=== PATIENT | female | born 1950 | race Caucasian/White ===

== ENCOUNTER 2024-08-31 10:32 | Emergency (ER) | payer MEDICARE, SELFPAY ==
--- NOTE | ~2024-08-31 | XR_ITS ---
EXAMINATION: XR KNEE, LEFT CLINICAL INFORMATION: fall knee pain s/p ORIF COMPARISON: None available. TECHNIQUE: Four views of the left knee. FINDINGS: Metallic hardware through the patella. Osteopenia versus osteoporosis. Marginal osteophyte formation femoral condyles and tibial plateau. Joint space narrowing involving the medial and to a lesser extent lateral compartment. No acute cortical disruption or malalignment. Small suprapatellar bursa joint effusion. XR/XR knee LT 4V IMPRESSION: Status post open reduction internal fixation of the patella fracture. Tricompartmental osteoarthrosis. Osteopenia versus osteoporosis. Small to moderate volume suprapatellar bursa joint effusion. Electronically signed by: Omar Dee MD 08/31/2024 12:07 PM EDT
--- NOTE | ~2024-08-31 | CT_ITS ---
CLINICAL HISTORY: fall left knee pain CT of the left knee without IV contrast. COMPARISON: XR left knee dated 08/31/24 at 12:00 EDT FINDINGS: Small suprapatellar joint effusion. Distal left femur, and proximal tibia and fibula are intact. Anatomic alignment of internally fixated patella. No acute patellar injury. No evidence of hardware failure or loosening. Medial and lateral joint space narrowing. Tricompartment osteophytes. IMPRESSION: 1. Small left suprapatellar joint effusion. 2. Anatomic alignment of internally fixated patella without evidence of hardware complication. 3. Moderate tricompartment degenerative changes of the left knee. This document has been electronically signed by: Bradly Sheth MD on 08/31/2024 17:48:43
[2024-08-31 10:41] VITALS: BP 152/90; PULSE 85; O2SAT 97
[2024-08-31 10:50] VITALS: BP 146/80; PULSE 72; RESP 18; TEMP 37; O2SAT 96; BMI 41.4
--- NOTE | 2024-08-31 10:56 | ED.FALL ---
HPI - Fall General Chief Complaint: Fall Stated Complaint: FALL,LLE PAIN/SWELLING,-LOC,-HS,-THINNERS PER EMS Time Seen by Provider: 08/31/24 10:43 Source: patient and EMS Mode of arrival: EMS Limitations: no limitations History of Present Illness ED Provider: MALISSA SORENSON PA-C HPI Narrative: 73-year-old female presents to the ED today via EMS from home for evaluation of left knee pain s/p mechanical trip and fall this morning. Patient reports ambulating around her home when her shoe got caught on the carpet causing her to fall to her left side. Reports falling onto her left knee. Denies any preceding symptoms. Denies head strike or LOC. No anticoagulation. States she was not able to stand or ambulate following the fall, prompting her to call EMS for transport to ED. Admits to pain along the anterolateral aspect of left knee, worse with movement and weight-bearing. She did not trial any [id number] pain medication prior to arrival. Admits to associated nausea without vomiting. Denies numbness, tingling, weakness of the left lower extremity. Admits to history of ORIF to left knee approximately 3-4 years ago. Related Data Home Medications ?Medication ?Instructions ?Recorded ?Confirmed Calcium 600 + D(3) 600 mg PO BID 08/31/24 08/31/24 fluoxetine 40 mg capsule 40 mg PO DAILY 08/31/24 08/31/24 lorazepam 0.5 mg tablet 0.5 mg PO BEDTIME PRN anxiety 08/31/24 08/31/24 metoprolol tartrate 25 mg tablet 25 mg PO BID 08/31/24 08/31/24 omeprazole 20 mg capsule,delayed 20 mg PO DAILY@0630 08/31/24 08/31/24 release pravastatin 10 mg tablet 10 mg PO DAILY 08/31/24 08/31/24 ropinirole 1 mg tablet 1 mg PO DAILY 08/31/24 08/31/24 ropinirole 1 mg tablet 3 mg PO DAILY@1200,2100 08/31/24 08/31/24 vitamins A,C,A-xdhm-djesvk 4,296 1 cap PO BID 08/31/24 08/31/24 mcg-226 mg-90 mg capsule (PreserVision AREDS) Allergies Allergy/AdvReac Type Severity Reaction Status Date / Time azithromycin Allergy Unknown Hives Verified 08/31/24 10:51 [Zithromax Z-Roderick] Review of Systems Review of Systems: Yes all other systems are reviewed and are negative [facility] Past Medical History Attestation statement: The following information was validated with the patient. Source: old records reviewed and nursing notes reviewed Social History Social History Smoked in Last 30 Days: No Use of substances other than those prescribed or required for medical reasons: No Any prior treatment program specific to substance use: No Advance Directives: No Advance Directives Information Provided: Yes Do you have a plan to hurt others: No Plan Physical Exam Vital Signs: Vital Signs: Last Vital Signs Temp 98.2 F 08/31/24 13:39 Pulse 81 08/31/24 14:08 Resp 18 08/31/24 13:39 BP 128/62 08/31/24 14:08 Pulse Ox 96 08/31/24 14:08 O2 Del Method Room Air 08/31/24 13:39 BMI result Body Mass Index 41.4 hypertensive, vitals otherwise wnl General: Well appearing, in no acute distress. Skin: Warm, dry, intact. No rashes or lesions. Head: Normocephalic, atraumatic. EENT: Hearing is intact b/l. Conjunctiva clear. PERRLA. EOM intact. Moist mucous membranes.? Neck: Supple without LAD Cardiac: Chest wall symmetric. RRR Lungs: Normal respiratory effort without accessory muscle use. CTA bilaterally. Ext: +healed vertical scar noted to anterior left knee. No surrounding erythema. No obvious deformity or noted swelling. Able to extend left lower extremity off of the bed with discomfort. Limited ROM to flexion secondary to pain. Tender to palpation along anterolateral aspect of left knee primarily along the patella. No palpable deformity or crepitus. Sensation intact to light touch distally. 2+ DP pulse intact. No calf tenderness. Ambulation not assessed. Neuro: AOx3. Normal speech. Course Course Course Narrative: 2944 -- x-ray left knee shows status post open reduction internal fixation of patellar fracture. No acute fracture or dislocation. There is tricompartmental osteoarthritis, osteopenia versus osteoporosis and small to moderate volume suprapatellar bursa joint effusion. > discussed workup results with patient. Concern for ligament versus tendon injury. Patient placed in knee immobilizer with advice to bear weight as tolerated. I discussed the option of crutches versus walker with patient. Declining crutch training. We trialed ambulation with walker which patient tolerated well however is requesting PT/case management consultation at this time to assess for further services. I I feel this is reasonable. Consultations placed. Patient tells me that she is full code. Code status updated. Offered tramadol as patient takes this at home for arthritis as needed. She states tramadol is not work for her and would like to trial oxycodone. This has been ordered. > physician observation initiated at this time 1433 -- PT recommending short-term rehab. Patient agreeable. Case management will follow. 1555 -- CM requesting CT keft knee for placement > IMPRESSION: 1. Small left suprapatellar joint effusion. 2. Anatomic alignment of internally fixated patella without evidence of hardware complication. 3. Moderate tricompartment degenerative changes of the left knee. Medications Administered Generic Name Dose Route Start Last Admin Trade Name Freq PRN Reason Stop Dose Admin Fluoxetine HCl 40 mg 08/31/24 15:45 08/31/24 15:47 Fluoxetine Hcl 20 Mg Capsule PO Not Given DAILY ADRIANNE Pravastatin Sodium 10 mg 08/31/24 15:45 08/31/24 15:47 Pravastatin Sodium 10 Mg Tablet PO Not Given DAILY ADRIANNE Discontinued Medications Generic Name Dose Route Start Last Admin Trade Name Freq PRN Reason Stop Dose Admin Ketorolac Tromethamine 30 mg 08/31/24 11:10 08/31/24 11:21 Ketorolac Tromethamine 30 Mg/Ml Vial IM 08/31/24 11:11 30 mg ONCE ONE Administration Omeprazole 20 mg 08/31/24 15:45 08/31/24 15:47 Omeprazole 20 Mg Capsule.Dr PO Not Given DAILY ADRIANNE Ondansetron HCl 4 mg 08/31/24 11:10 08/31/24 11:21 Ondansetron Odt 4 Mg Tab.Rapdis TRANSLINGU 08/31/24 11:11 4 mg ONCE ONE Administration Oxycodone HCl 5 mg 08/31/24 13:47 08/31/24 14:11 Oxycodone Hcl Immed Release 5 Mg Tablet PO 08/31/24 13:48 5 mg ONCE ONE Administration Ropinirole HCl 3 mg 08/31/24 15:20 08/31/24 15:47 Ropinirole Hcl 1 Mg Tablet PO 08/31/24 15:21 3 mg ONCE ONE Administration Procedures Orthopedic Splinting/Casting Injury #1: Side: left Lower Extremity Injury Location: knee Lower Extremity Immobilizer: knee immobilizer Medical Decision Making Medical Decision Making MDM Narrative: 73-year-old female presents to the ED today via EMS from home for evaluation of left knee pain s/p mechanical trip and fall this morning. Hypertensive, vitals otherwise WNL. She is well-appearing and in no acute distress, lying comfortably on the exam bed. on exam of RLE, healed vertical scar noted to anterior left knee. No surrounding erythema. No obvious deformity or noted swelling. Able to extend left lower extremity off of the bed with discomfort. Limited ROM to flexion secondary to pain. Tender to palpation along anterolateral aspect of left knee primarily along the patella. No palpable deformity or crepitus. Sensation intact to light touch distally. 2+ DP pulse intact. No calf tenderness. Ambulation not assessed. Differential diagnosis includes MSK sprain/strain, fracture, contusion, dislocation. Presentation not consistent with gout, pseudogout, Lyme arthritis, septic joint. Unlikely neurovascular compromise, threat to limb, compartment syndrome, DVT. Plan for x-rays, pain control, re-evaluation. Differential Diagnosis Differential Diagnoses: The differential diagnosis associated with the presentation includes as above. Admission/Observation Consideration of admission/observation: Escalation of care including admission/observation considered Lab Data [facility] Lab Attestation statement: I reviewed the patient's lab results. as above. Labs: Lab Results 08/31/24 Range/Units 14:41 Influenza Type A (PCR) NEGATIVE (Negative) Influenza Type B (PCR) NEGATIVE (Negative) RSV RNA Qual (PCR) NEGATIVE (Negative) SARS-CoV-2 RNA (RT-PCR) NEGATIVE (Negative) Independent Interpretation I performed an independent interpretation of an: Plain X-Ray and CT Scan Interpretation: xr left knee without acute fracture ct left knee without fracture Radiology Impression Discussion of test interpretation with radiology: I have reviewed the radiologist's reading. Radiologist Impression: XR knee LT 4V IMPRESSION: Status post open reduction internal fixation of the patella fracture. Tricompartmental osteoarthrosis. Osteopenia versus osteoporosis. Small to moderate volume suprapatellar bursa joint effusion. Electronically signed by: Omar Dee MD 08/31/2024 12:07 PM EDT Procedure(s): CT knee LT wo IV con Accession Number(s): [id number] cc: Malissa Sorenson~ Report Number: [id number]: Total DLP = 180.00 mGy-cm CLINICAL HISTORY: fall left knee pain CT of the left knee without IV contrast. COMPARISON: XR left knee dated 08/31/24 at 12:00 EDT FINDINGS: Small suprapatellar joint effusion. Distal left femur, and proximal tibia and fibula are intact. Anatomic alignment of internally fixated patella. No acute patellar injury. No evidence of hardware failure or loosening. Medial and lateral joint space narrowing. Tricompartment osteophytes. IMPRESSION: 1. Small left suprapatellar joint effusion. 2. Anatomic alignment of internally fixated patella without evidence of hardware complication. 3. Moderate tricompartment degenerative changes of the left knee. This document has been electronically signed by: Bradly Sheth MD on 08/31/2024 17:48:43 Independent Historian Clinical information obtained from an independent historian. History obtained from or confirmed by: EMS and Other (Son) Prescription Management I considered prescription management with: Pain Medication Social Determinants Patient?s care significantly limited by Social Determinants of Health including: Other Social Determinant of Health Critical Care Time Critical Care Time Critical Care Time: No Discharge Plan Discharge Clinical Impression: Left knee sprain Instructions: Knee Sprain (ED) Additional Instructions: You were evaluated in the ED today for leg knee pain following a fall. The x-ray of your left knee no leg shows joint effusion and osteoarthritis. There is no acute fracture. XR knee LT 4V IMPRESSION: Status post open reduction internal fixation of the patella fracture. Tricompartmental osteoarthrosis. Osteopenia versus osteoporosis. Small to moderate volume suprapatellar bursa joint effusion. Concern for ligament/tendon injury. You were placed in a knee immobilizer. You are declining crutches at this time. I have provided you with a prescription for a walker. You may present to any medical supply store every to obtain this. I recommend wearing the knee immobilizer and using the walker until you are able to follow up with orthopedics outpatient. You may bear weight as tolerated. You have been provided with a referral. Call them to establish care, they will not call you. I am sending tramadol to your pharmacy for you to take as needed for breakthrough pain. Use this medication with caution as this is a controlled substance and has addictive properties. Return with new or worsening symptoms. In the case of an emergency call 911. Prescriptions: No Action fluoxetine 40 mg capsule 40 mg PO DAILY ropinirole 1 mg tablet 1 mg PO DAILY pravastatin 10 mg tablet 10 mg PO DAILY omeprazole 20 mg capsule,delayed release(DR/EC) 20 mg PO DAILY@0630 metoprolol tartrate 25 mg tablet 25 mg PO BID Calcium 600 + D(3) tablet 600 mg PO BID Rx Instructions: 1 tab bid ropinirole 1 mg tablet 3 mg PO DAILY@1200,2100 lorazepam 0.5 mg tablet 0.5 mg PO BEDTIME PRN (Reason: anxiety) PreserVision AREDS 4,296 mcg-226 mg-90 mg Capsule 1 cap PO BID Referrals: [facility] [place] [facility] [Provider Group] - 3 days (XR knee LT 4V IMPRESSION: Status post open reduction internal fixation of the patella fracture. Tricompartmental osteoarthrosis. Osteopenia versus osteoporosis. Small to moderate volume suprapatellar bursa joint effusion.) Print Language: Spanish
[2024-08-31] MEDS: Ketorolac Tromethamine 30 MG/ML VIAL IM (11:21)
[2024-08-31] MEDS: Ondansetron ODT 4 MG TAB.RAPDIS TRANSLINGU (11:21)
--- OUTSIDE RECORDS SUMMARY | 2024-08-31 12:50 | XMS_ITS | Clinical Summary ---
Author Organization [facility] Address [address] [place] [address] Care Team Providers Care Redevelopment Specialist Name Role Phone Arlyn Llanes PA-C Primary Care Provi bhavani Kalina Martins MD Unavailable [phone] Breanne Painting MD Unavailable [phone] Jim Jordan Unavailable Allergies Active Allergy Reactions Criticality Noted Date Comments Azithromycin Unknown/Patient and Family Unable to Define Medium 05/25/2023 Sumatriptan Unknown/Patient and Family Unable to Define High 05/25/2023 Shrimp Hives Medium 02/19/2024 Zolmitriptan Unknown/Patient and Family Unable to Define Medium 05/25/2023 Medications rOPINIRole (REQUIP) 1 MG tablet Take 1 tablet (1 mg total) by mouth 2 (two) times a day. 1 tablet po in am and 2 tablet po noon and 3 tabs po at bedtime Active traMADol (ULTRAM) 50 MG tablet Take 1 tablet (50 mg total) by mouth as needed for severe pain. Active Vitamin D3 (CHOLECALCIFEROL) 50 MCG (2000 UT) tablet Take 1 tablet (2,000 Units total) by mouth daily. Active calcium carbonate-vitamin D (CALTRATE+D) 600 mg-10 mcg tablet Take 1 tablet by mouth 2 times a day. Active FLUoxetine (PROzac) 40 MG capsuleIndications :Gastroesophageal reflux disease, unspecified whether esophagitis present,Recurrent major depressive disorder, in partial remission,Anxiety Take 1 capsule (40 mg total) by mouth daily. 90 capsule 3 4 Active OMEprazole (PriLOSEC) 20 MG capsuleIndications :Gastroesophageal reflux disease, unspecified whether esophagitis present,Recurrent major depressive disorder, in partial remission Take 1 capsule (20 mg total) by mouth every morning before breakfast. 90 capsule 3 4 Active pravastatin (PRAVACHOL) 10 MG tabletIndications: Other hyperlipidemia Take 1 tablet (10 mg total) by mouth daily. 90 tablet 3 4 Active LORazepam (ATIVAN) 0.5 MG tabletIndications: Anxiety Take 1 tablet (0.5 mg total) by mouth nightly as needed for anxiety. For anxiety 90 tablet 3 5 Active loteprednol (LOTEMAX) 0.5 % ophthalmic suspension Administer 2 drops to both eyes 2 times a day. 5 Active metoPROLOL TARTRATE (LOPRESSOR) 25 MG tablet Take 1 tablet (25 mg total) by mouth 2 times a day. 5 026 Active empagliflozin (JARDIANCE) 10 MG tabletIndications: Prediabetes Take 1 tablet (10 mg total) by mouth every morning. 90 tablet 3 5 026 Active Active Problems Problem Noted Date Diagnosed Date PTTD (posterior tibial tendon dysfunction) 11/02 Hypocalcemia 10/07/2023 Overview (12/12/2023): S/p parathyroidectomy 02/2022, removal of bilateral superior glands - left superior 395 mg, right superior 156 mg & right inferior 97 mg, bx of left inferior - all hypercellular; PTH 62 to 14. Last Assessment & Plan: Her calcium levels have been low-normal to mildly low for the most part, no symptoms of acute hypocalcemia, phosphorus has been high normal/mildly high. Appears to have limited parathyroid reserve/mild hypoparathyroidism s/p parathyroidectomy x 3 w/ biopsy of the 4th. Will continue to monitor, if worsens will add 1, 25 D. Continue current calcium & 25D. Discussed sxs/signs of low calcium, if unable to take po d/t n/v & develops any symptoms, needs to go to ER. Pulmonary nodule 05/25/2023 Spinal stenosis of lumbar re gion without neurogenic claudication 05/25/2023 Macular degeneration 05/25/2023 IFG (impaired fasting glucose) 05/25/2023 Restless leg 05/16/2023 Osteoarthritis of multiple joints 05/16/2023 Morbid obesity 05/16/2023 Major depressive disorder in partial remission 0 05/16/2023 Anxiety 05/05/2023 05/05/2023 Fibromyalgia 05/05/2023 05/05/2023 Overview (05/05/2023): Last Assessment & Plan: Diffuse muscle pain stable Cntinue with daily physical activity. Other hyperlipidemia 05/05/2023 05/05/2023 Multinodular goiter 05/05/2023 05/05/2023 Overview (05/05/2023): S/p FNA right lobe nodule 12/2021, benign; s/p removal of exophytic left lobe nodule @ time of parathyroidectomy - nodular follicular hyperplasia Nephrolithiasis 05/05/2023 05/05/2023 History of primary hyperparathyroidism 3 05/05/2023 Overview (05/05/2023): S/p parathyroidectomy 02/2022, removal of bilateral superior glands - left superior 395 mg, right superior 156 mg & right inferior 97 mg, bx of left inferior - all hypercellular; PTH 62 to 14. Last Assessment & Plan: Appears euparathyroid on current labs. She has apparently had some low calcium levels since parathyroidectomy. Advised to split calcium into bid dosing (& if calcium carbonate, take with food). Will call for records from [facility] along w/ more recent labs. Hypertension 12/07/2021 05/05/2023 Migraine without aura 12/07/2021 05/05/2023 Osteoporosis 12/06/2021 05/25/2023 Gastroesophageal reflux disease without esophagi tis 05/09/2021 05/05/2023 Overview (05/05/2023): Last Assessment & Plan: Continue on omeprazole 20 mg PO daily. Last Assessment & Plan: Continue on omeprazole 20 mg PO daily. Resolved Problems Problem Noted Date Diagnosed Date Resolved Date History of positive PPD 05/25/202308/27 Overview (05/25/2023): Treated 25yr ago Trigger middle finger of right hand 05/25/202305/2509/17/2023 Overview (05/25/2023): Last Assessment & Plan: Recurrent triggering of the right middle and ring fingers, likely from overuse. She holds her cane in the right hand and leans heavily on it. Injected the middle trigger finger with triamcinolone. Benign lipomatous neoplasm o f skin and subcutaneous tissue of right leg 05/05/2023 05/05/2023 024 Status post total hip replacement, left 07/09/2021 0 05/25/2023 09/17/2023 Encounters Date Type Department Care Team Description 07/22/2024 Orders Only [facility] [address] [phone] Silvia Villeda PA-C Prediabetes (Primary Dx) 07/21/2024 1:00 PM EDT Office Visit [facility] [address] [place] [phone] Silvia Villeda PA-C Obesity, Class II, BMI 35-39.9 (Primary Dx); Prediabetes 07/21/2024 Telephone [facility] [address] [place] [phone] Silvia Villeda PA-C Appointment 07/21/2024 Travel 07/20/2024 Orders Only [address] [place] [address] ProviderHubert MD 06/22/2024 Orders Only [address] [place] [address] ProviderHubert MD 06/18/2024 Orders Only [address] [phone] Arlyn Llanes PA-C Acute vaginitis (Primary Dx) 06/18/[address] [phone] Arlyn Llanes PA-C 06/16/2024 1:00 PM EST Office Visit [address] [phone] Arlyn Llanes PA-C Influenza A (Primary Dx); Acute cough; Primary hypertension; Palpitations; Lower extremity edema 06/16/[address] [phone] Arlyn Llanes PA-C 06/16/2024 Travel 06/14/2024 Orders Only [address] [phone] Provider, Zohaib External Data 06/10/[address] [phone] Arlyn Llanes PA-C Other 06/09/[address] [phone] Arlyn Llanes PA-C 06/07/2024 Orders Only [facility] [address] [place] [address] Cardiology, Scan from Last 3 Months Immunizations Immunization Administration Dates Next Due Covid-19 MRNA Vaccine - Pfiz er 12+ (Purple Cap) 01/30/2021,06/26/2020,06/05/2020 H1N1 Inj Preservative Free 02/14/2009 H1N1 Nasal 02/14/2009 Hepatitis B 12/12/2011,07/12/2011,06/12/2011 Influenza High-Dose Quadrivalent,(FLUZONE HIGH-DOSE), Perservative Free IM 0.7 mL 65 years and older 01/22/2023,01/21/2022,01/22/2021,01/18,01/01/2019,01/23/2018,01/28/2017 Influenza High-Dose Trivalen t,(FLUZONE HIGH-DOSE), Perservative Free IM 0.5 mL 65 years and older 01/01/2019,01/23/2018,01/28/2017 Influenza Virus Trivalent Sp lit Vaccine (MDV) IM 01/10/2015,01/28/2013,01/08/2011,02/02,02/02/2008 Influenza, Quadrivalent (FLU AD) Adjuvanted Preservative Free IM 65 years and older 01/22/2021 Influenza, Quadrivalent (FLU ARIX, AFLURIA, FLULAVAL, FLUZONE) Preservative Free IM 02/19/2016 Influenza, Quadrivalent (FLU CELVAX) MDCK, Preservative Free IM 01/01/2019,02/19/2016,01/10/2015,01/28,01/08/2011,02/02/2010,02/02/2008 Influenza, Trivalent (FLUAD) Adjuvanted Preservative Free IM 65 years and older 01/04/2024 Influenza, Unspecified 01/22/2021 Mumps 09/22/2009 Pneumococcal Conjugate 13-Valent 11/02/2015 Pneumococcal Polysaccharide 23-Valent 12/03/2017 ,01/09/2010,02/15/2002 RSV VACCINE,Uspecified 01/04/2024 TD Preservative Free 05/27/2018 Td, Unspecified 05/27/2018 Tdap 02/14/2021,02/05/2008 Zoster Vaccine Live/Attenuat ed (Zostavax) 02/26/2012 Zoster Vaccine Recombinant (Shingrix) 11/25/2022 ,08/29/2022,05/28/2022 Family History Medical History Relation Name Comments Leukemia Father Heart disease Mother Hyperlipidemia Mother Hypotension Mother Hypotension Sister Relation Name Status Comments Father Mother Sister Social History Tobacco Use Types Packs/Day Years Used Date Smoking Tobacco: Former Cigarettes 0.5 30 1 968 - 1998 Smokeless Tobacco: Never Tobacco Cessation:Counseling Given: Not Answered Alcohol Use Standard Drinks/Week Comments Never 0 (1 standard drink = 0.6 oz pur e alcohol) PHQ-2 Answer Date Recorded PHQ-2 Total Score 0 09/16/2023 [facility] - Occupational Stress Questionnaire Answer Date Recorded Do you feel stress - tense, restless, nervous, or anxious, or unable to sleep at night because your mind is troubled all the time - these days? Rather much 07/21/2024 Physical Activity Answer Date Recorded On average, how many days pe r week do you engage in moderate to strenuous exercise (like a brisk walk)? 7 days 07/21/2024 On average, how many minutes do you exercise per day at this level? 10 min 07/21/2024 Comments No Sex and Gender Information Value Date Recorded Sex Assigned at Choose not to disclose 2:52 PM EST Legal Sex Female 2:50 PM EST Gender Identity Choose not to disclose 2:52 PM EST Sexual Orientation Choose not to disclose 2022 2:52 PM EST Last Filed Vital Signs Vital Sign Reading Time Taken Comments Blood Pressure 133/65 07/21/2024 12:51 PM EDT Pulse 87 07/21/2024 12:51 PM EDT Temperature 36.5 ??C (97.7 ??F) 06/16/2024 1:04 PM ES T Respiratory Rate 17 06/16/2024 1:04 PM EST Oxygen Saturation 98% 06/16/2024 1:04 PM EST Inhaled Oxygen Concentration - - Weight 104 kg (229 lb 6.4 oz) 07/21/2024 12:51 P M EDT Height 160 cm (5' 3 ) 07/21/2024 12:51 PM EDT Body Mass Index 40.64 07/21/2024 12:51 PM EDT Plan of Treatment Upcoming Encounters Date Type Department Care Team (Late st Contact Info) Description 10/01/2024 11:00 AM EDT Office Visit [facility] [address] [place] [phone] Arlyn Llanes PA-C [address] [place] [address] Health Maintenance Due Date Last Done Comments Hepatitis C Virus Screening 1950 Physical 10/20/1969 Colonoscopy 10/20/1996 COVID-19 Vaccine (2023-2 5 season) 2023 01/30/2021, 06/26/2020, 06/05/2020 Annual Wellness Visit 09/17/2024 09/17/2023 Mammogram 02/10/2025 02/10/2023 (Prev iously Completed) DXA Bone Density (Females,Ag es 65 and older) 09/29/2025 09/30/2023 DTaP/Tdap/Td Vaccines (5 - T d or Tdap) 02/14/2031 02/14/2021, 05/27/2018, 05/27/2018, Additional history exists Hepatitis B Vaccines Completed 12/12/2011, 07/12/2011, 06/12/2011 Pneumococcal Vaccines 50+ Completed 2017, 11/02/2015, 01/09/2010, Additional history exists Zoster (Shingles) Vaccine Completed 2022, 08/29/2022, 05/28/2022, Additional history exists Influenza Vaccine Completed 01/04/2024, , 01/21/2022, Additional history exists RSV Vaccine 60 years and old er and Patients Discontinued 01/04/2024 Chronic Controlled Substance User PDMP Review Discontinued 05/05/2024, 11/03/2023, 09/09/2023, Additional history exists Procedures Procedure Name Priority Date/Time Associated Diagnosis Comments HEMOGLOBIN A1C WITH ESTIMATED AVERAGE GLUCOSE Routine 07/21/2024 1:47 PM EDT Obesity, Class II, BMI 35-39.9 Prediabetes ECG 12-LEAD Routine 07/20/2024 2:31 PM EDT LAB RESULT Routine 06/22/2024 3:35 PM EST CARDIOLOGY ANGIOGRAM Routine 06/04/2024 1:43 PM EST BD BONE DENSITY STUDY - AXIAL Routine 09/30/2023 10:14 AM EDT from Last 3 Months or Most Recently Relevant to Health Maintenance Results * (ABNORMAL) Hemoglobin A1C with Estimated Average Glucose (07/21/2024 1:47 PM EDT) Hemoglobin A1C 6.0(H) <5.7 % of total Hgb [employer] Comment: For someone without known diabetes, a hemoglobin A1c value between 5.7% and 6.4% is consistent with prediabetes and should be confirmed with a follow-up test. For someone with known diabetes, a value <7% indicates that their diabetes is well controlled. A1c targets should be individualized based on duration of diabetes, age, comorbid conditions, and other considerations. This assay result is consistent with an increased risk of diabetes. Currently, no consensus exists regarding use of hemoglobin A1c for diagnosis of diabetes for children. Estimated Average Glucose (mg/dL) 126 mg/dL [employer] Estimated Average Glucose (mmol/L) 7.0 mmol/L [employer] Blood Blood specimen / Unknown 07/21/2024 1:47 PM EDT 07/21/2024 1:47 PM EDT Narrative [facility] - 07/22/2024 4:42 AM EDT FASTING:NO FASTING: NO us Silvia Villeda PA-C LAB BLOOD ORDERABLES Final Result [email or web address] [address] [place] [phone] * ECG 12 lead (07/20/2024 2:31 PM EDT) us External Provider ECG ORDERABLES Final Resul t * LAB RESULT (06/22/2024 3:35 PM EST) us External Provider MD [facility] AMB PROCEDURES Final Res ult * CARDIOLOGY ANGIOGRAM (06/04/2024 1:43 PM EST) Anatomical Region Laterality Modality Other us Scan Cardiology HX AMB PROCEDURES Edited Result - Final * BD BONE DENSITY STUDY - AXIAL (09/30/2023 10:14 AM EDT) Anatomical Region Laterality Modality Other 09/30/2023 9:45 AM EDT 09/30/2023 9:45 AM EDT Impressions 10/01/2023 8:36 AM EDT 1. DIAGNOSIS: Severe osteoporosis based on the lowest T-score value of -3.1 in the femoral neck and history of fracture of wrist, humerus/shoulder, femur/hip applying World Health Organization criteria. ?? 2. 10-YEAR FRACTURE RISK PREDICTION, FRAX: According to the guidelines, FRAX calculation should only be performed on patients in the osteopenia bone density category. Therefore, FRAX was not performed on this patient. 3. Treatment Recommendations: NOF guidelines recommend consideration for treatment in postmenopausal women and men age 50 and older presenting with the following: -A hip or vertebral (clinical or morphometric) fracture. -T-score less than or equal to -2.5 at the femoral neck or spine after appropriate evaluation to exclude secondary causes. -Low bone mass at the hip or spine and a 10-year fracture probability by FRAX of greater than or equal to 3% for hip fracture or greater than or equal to 20% for major osteoporotic fracture based on the [place] adapted WHO algorithm. 4. Other Recommendations: All treatment decisions require clinical judgment and consideration of individual patient factors, including patient preferences, comorbidities, previous drug use, risk factors not captured in the FRAX model (e.g. frailty, falls, vitamin D deficiency, increased bone turnover, interval significant decline in bone density) and possible under or overestimation of fracture risk by FRAX. Additional medical evaluation for secondary cause of low bone mineral density may be appropriate. 5. Mild levoscoliosis. FUTURE SCAN RECOMMENDATION: People with diagnosed cases of osteoporosis or at high risk for fracture should have regular bone mineral density tests. For patients eligible for Medicare, routine testing is allowed once every 2 years. The testing frequency can be increased to one year for patients who have rapidly progressing disease, those who are receiving or discontinuing medical therapy to restore bone mass, or have additional risk factors. Thank you for referring your patient to us, Merry Carter MD [phone] (Electronically Signed - 10/01/2023 08:36) Copy: BREANNE PAINTING MD [facility] , ?? Narrative 10/01/2023 8:36 AM EDT EXAMINATION: BONE DENSITOMETRY CLINICAL INDICATION: Osteoporosis. COMPARISON: This is the patients baseline examination. TECHNIQUE: Using a [employer]zbig DXA system (software version: 14.10) manufactured by [employer], dual-energy x-ray absorptiometry was performed of the lumbar spine and right hip. The images are of good technical quality. Summary results are attached. FINDINGS: AP SPINE L1-L3 (excluding L4): The data of L1-L4 has been changed to exclude the L4 vertebral body, because at this level may cause overestimation of lumbar spine density. BMD 1.235 g/cm2, Z-score 2.1, T-score 0.4, normal. RIGHT FEMUR, NECK: BMD 0.609 g/cm2, Z-score -1.3, T-score -3.1, osteoporosis. RIGHT FEMUR, TOTAL: BMD 0.776 g/cm2, Z-score -0.3, T-score -1.8, osteopenia. IDENTIFIED RISK FACTORS: Menopause, height loss, history of fracture (adult), hysterectomy, low calcium intake, osteoporosis. HISTORY OF FRACTURE: Femur/hip, humerus/shoulder, wrist, other fracture. MEDICATIONS: Multivitamin, vitamin D, bisphosphonates, calcium. Procedure Note Merry Carter MD - 10/01/2023 EXAMINATION: BONE DENSITOMETRY CLINICAL INDICATION: Osteoporosis. COMPARISON: This is the patients baseline examination. TECHNIQUE: Using a [employer] DXA system (software version:14.10) manufactured by [employer], dual-energy x-ray absorptiometrywas performed of the lumbar spine and right hip. The images are of goodtechnical quality. Summary results are attached. FINDINGS: AP SPINE L1-L3 (excluding L4): The data of L1-L4 has been changed toexclude the L4 vertebral body, because at this level may cause overestimation of lumbar spine density. BMD 1.235 g/cm2, Z-score 2.1, T-score 0.4, normal. RIGHT FEMUR, NECK: BMD 0.609 g/cm2, Z-score -1.3, T-score -3.1, osteoporosis. RIGHT FEMUR, TOTAL: BMD 0.776 g/cm2, Z-score -0.3, T-score -1.8, osteopenia. IDENTIFIED RISK FACTORS: Menopause, height loss, history of fracture (adult), hysterectomy, lowcalcium intake, osteoporosis. HISTORY OF FRACTURE: Femur/hip, humerus/shoulder, wrist, other fracture. MEDICATIONS: Multivitamin, vitamin D, bisphosphonates, calcium. IMPRESSION: 1. DIAGNOSIS: Severe osteoporosis based on the lowest T-score value of-3.1 in the femoral neck and history of fracture of wrist, humerus/shoulder,femur/hip applying World Health Organization criteria. 2. 10-YEAR FRACTURE RISK PREDICTION, FRAX: According to the guidelines,FRAX calculation should only be performed on patients in the osteopenia bone density category. Therefore, FRAX was not performed on this patient. 3. Treatment Recommendations: NOF guidelines recommend consideration for treatment in postmenopausal women and men age 50 and older presenting withthe following: -A hip or vertebral (clinical or morphometric) fracture. -T-score less than or equal to -2.5 at the femoral neck or spine after appropriate evaluation to exclude secondary causes. -Low bone mass at the hip or spine and a 10-year fracture probability byFRAX of greater than or equal to 3% for hip fracture or greater than or equalto 20% for major osteoporotic fracture based on the [place] adapted WHOalgorithm. 4. Other Recommendations: All treatment decisions require clinicaljudgment and consideration of individual patient factors, including patient preferences, comorbidities, previous drug use, risk factors not capturedin the FRAX model (e.g. frailty, falls, vitamin D deficiency, increasedbone turnover, interval significant decline in bone density) and possible underor overestimation of fracture risk by FRAX. Additional medical evaluationfor secondary cause of low bone mineral density may be appropriate. 5. Mild levoscoliosis. FUTURE SCAN RECOMMENDATION: People with diagnosed cases of osteoporosis or at high risk for fracture should have regular bone mineral density tests. For patients eligiblefor Medicare, routine testing is allowed once every 2 years. The testingfrequency can be increased to one year for patients who have rapidly progressing disease, those who are receiving or discontinuing medical therapy torestore bone mass, or have additional risk factors. Thank you for referring your patient to us, Merry Carter MD [phone] (Electronically Signed - 10/01/2023 08:36) Copy: BREANNE PAINTING MD [facility] , Arlyn Llanes PA-C IMG LEGACY PROCEDUR ES Final Result from Last 3 Months or Most Recently Relevant to Health Maintenance Insurance MEDICARE PART A & [place] [id number] Care Teams Redevelopment Specialist Relationship Specialty Start Date End Date Arlyn Llanes PA-C PCP - General Adult Health - PA/APNP/DRAFTER/MIS DIRECTOR 03/17/23 Kalina Martins MD [address] [place] [phone] Endocrinology 09/17/23 Breanne Painting MD [address] [place] [phone] Rheumatology 09/17/23 Jim Jordan [address] [place] [phone] Physical Medicine and Rehabilitation 09/17/23 Karen Greenwood Physician Gastroenterology 08/25/23
--- OUTSIDE RECORDS SUMMARY | 2024-08-31 12:50 | XMS_ITS | Data Portability ---
Author Organization [place] [facility] Tor[facility] P[facility]rez [facility] [place] Address [address] [place] [address] Care Team Providers Care Blood Bank Business Manager Name Role Phone GINA QUINTANILLA Referring Provider Assessment Encounter Date Assessment Date Assessment LastModified by Organization Details LastModified Time 04/02/2024 04/02/2024 Zuri has right knee pain with a history of previous joint replacement. We reviewed her x-rays together on the computer with no signs of hardware failure loosening or periprosthetic fracture. An ESR and CRP will be obtained and patient will follow-up Dr. Park's team in the [place] office for further evaluation. She did have some calf pain which was also mentioned by her urgent care visit consistent with a possible DVT. She was not recommended for any additional studies. Suspicion is low, but should be ruled out. If positive she will contact her primary care provider or go to the ER. She can use Voltaren gel over the area in the meantime to see if it offers some relief. Patient was seen and evaluated by New Schmidt PA-C in indirect conjunction with Dr. Park. The provider agrees with the history, physical examination, recommended tests/diagnostic imaging, and treatment plan. [email or web address] Not available 04/02/2024 11:08:37 Plan of Treatment Reminders Order Date Submit Date Provider Last Modified By Organization Details Last Modified Time Details Appointments None recorded. Lab ESR (erythrocyt e sedimentati on rate), blood - Joint pain status post arthroplast y, evaluate for joint infection 2023 024 FLORI Not available 10:43:15 C-reactive protein, quantitativ e, serum or plasma - Joint pain status post arthroplast y, evaluate for joint infection 2023 FLORI Not available 10:43:15 Referral None recorded. Procedures None recorded. Surgeries None recorded. Imaging US, duplex, venous, lower extremity - For 2 weeks calf pain and swelling. Rule out DVT 2023 FLORI Not available 10:01:16 XR, knee, 4 or more view 2023 a[facility]oro [facility], [address], [place], [address], 11:13:24 Medication Orders None recorded. Patient TargetsNo targets recorded. Patient InstructionsNo instructions recorded. Reason for Referral None Reported. Results Created Date Observation Date Name Description Value Unit Range Abnormal Flag Note LastModifiedBy Organization Detail LastModifiedTime 04/05/20 24 04/05/2024 US, duple x, venou s, lower extre mity No observ ation record ed. [email or web address] [facility] [address] [place], [address], 04/05/2024 13:56:00 Result Notes None recorded. Problems Name Problem SNOMED Code Status Onset Date Resolution Date Notes Provider Name and Address Organization Details Recorded Time Pain of right calf 8710446732031813 Active 2023 NEW SCHMIDT PA-C [address], [place], [phone], [place] [facility] 10:34:36 Problem Notes None recorded. Procedures Surgical History Date Name Laterality Status Provider Name and Address Organization Details Recorded Time arthroplasty of knee completed Lela Fall [facility] 04/02/2024 10:14:05 total replacement of hip completed Lela Fall [facility] 04/02/2024 10:14:15 Imaging Results Imaging Date Name Status LastModified by Organiz ation Details LastModified Time 04/05/2024 US, duplex, venous, lower extremity completed [email or web address] [facility] [address] [facility], [place], [address], 04/05/2024 13:56:00 Procedure Notes None recorded. Medical Equipment None Reported. Allergies Allergen ID Allergen Name Allergen Category Reaction Reaction Severity Criticality Documentation Date Start Date Code Code System Note Provider Name and Address Organization Details Recorded Time azithromy franki medicatio n Not available Not available Not available 04/02/2024 27485 RxNorm Lela Ana Maríaowinsk i null, [place] [facility] 10:07:49 sumatript an medicatio n Not available Not available Not available 04/02/2024 81995 RxNorm Lela Ana Maríaowinsk i null, [place] [facility] 10:11:42 Vitals Date Recorded Body height Body mass index (BMI) Body weight Provider Name and Address Organization Details Last Updated DateTime 04/02/2024 162.56 cm 33.5 kg/m2 50330.[address] [place] [facility] 04/02/2024 10:12:09 Social History Question Answer Notes LastModified by Organizat ion Details LastModified Time Tobacco Smoking Status Former Smoker Lela Woodlarisa jackson, [place] [facility] 04/02/2024 10:12:22 What Is Your Level Of Alcohol Consumption? None Information not available 04/02/2024 Do You Use Any Illicit Or Recreational Drugs? No Information not available 04/02/2024 Do You Or Have You Ever Used Any Other Forms Of Tobacco Or Nicotine? No Information not available 04/02/2024 Sex: Unknown Functional Status None recorded. Mental Status None recorded. Family History Relationship Description Onset Age of this Age Resolved Age Notes LastModified by Organization Details LastModified Time Father Malignant neoplastic disease [email or web address] Not available 09/2023 10:12:47 Father Hypertensive disorder [email or web address] Not available 09/2023 10:13:09 Father Heart disease [email or web address] Not available 09/2023 10:13:54 Mother Malignant neoplastic disease [email or web address] Not available 09/2023 10:12:47 Mother Hypertensive disorder [email or web address] Not available 09/2023 10:13:09 Mother Hyperlipidem ia [email or web address] Not available 09/2023 10:13:23 Mother Heart disease [email or web address] Not available 09/2023 10:13:54 Sister Hypertensive disorder [email or web address] Not available 09/2023 10:13:09 Sister Hyperlipidem ia msolowinski Not available 09/2023 10:13:23 Medical History Condition Response Osteopenia Y Hypertension Y Gynecological HistoryNo gynecological history recorded. Obstetrics History GPAL:G 0 P 0 0 0 0 Past Encounters Encounter ID Performer Location Encounter Start Date Encounter Closed Date Diagnosis/Indication Diagnosis SNOMED-CT Code Diagnosis ICD10 Code Diagnosis Note [id number] NEW SCHMIDT PA-C [facility] [address] [place] [phone] 04/02/2024 09:56:12 04/02/2024 11:13:24 Pain of right knee joint 7571356115 18634 M25.561 Pain of right calf 19950 88234 865666 M79.661 History of right total knee replacement 9821815289 843551 Z96.651 Health Concerns Section Related Observation LastModified by Organization Detai ls LastModified Time None Recorded Concern Status LastModified by Organization Details LastModified Time None Recorded Advance Directives Directive None Recorded Payers Encounter Date Sequence Insurance Name Policy Number Policy Rodriguez Covered Member ID Rodriguez Member ID Guarantor Name 04/02/2024 1 [place] Zuri Sharma [id number] Zuri Sharma 04/02/2024 2 [place]PPLE[place]) [id number] Zuri Sharma [id number] Zuri Sharma Notes Date Note Type Note Provider Name and Address Organization Details Recorded Time 04/02/2024 text/html Patient is a 73-year-old female who presents today with right knee pain. Past medical history significant for previous knee replacement by Dr. Benton 10 years ago. She has done well since. Unfortunately 2 weeks ago she started to have pain in the lateral aspect of her right knee and some calf pain. She denied any injury or trauma to cause the onset of her symptoms. She was seen at an urgent care on Friday. X-rays were obtained which were not available for today's visit. She was told she should see an orthopedist. She was also told she might have a clot. She was not sent for any additional imaging or treatment. She presents today for evaluation. Pain increases with activity but is intermittent. Unfortunate symptoms are getting getting worse. Past medical history significant for right knee replacement, hypertension and osteoporosis. NEW SCHMIDT PA-C [address], [place], [address], [place] [facility] 04/02/2024 11:09:22 OBGyn Episode No OBEpisode recorded.
--- OUTSIDE RECORDS SUMMARY | 2024-08-31 12:50 | XMS_ITS | Encounter Summary ---
Author Organization [facility] Address [address] [place] [address] Care Team Providers Care Patch Sander Name Role Phone Arlyn Llanes PA-C Primary Care Provi bhavani Kalina Martins MD Unavailable [phone] Emanuel Mcclelland MD Unavailable [phone] Taye Andres MD Unavailable [phone] Jim Jordan Unavailable Encounter Details Date Type Department Care Team (Late st Contact Info) Description 08/05/2023 Scanned Document [address] [place] [phone] Primary Care, Scan Social History Tobacco Use Types Packs/Day Years Used Date Smoking Tobacco: Former Cigarettes 0.5 30 1 968 - 1998 Smokeless Tobacco: Never Alcohol Use Standard Drinks/Week Comments Never 0 (1 standard drink = 0.6 oz pur e alcohol) PHQ-2 Answer Date Recorded PHQ-2 Total Score 4 05/16/2023 [facility] of Occupat ional Health - Occupational Stress Questionnaire Answer Date Recorded Do you feel stress - tense, restless, nervous, or anxious, or unable to sleep at night because your mind is troubled all the time - these days? Very much 06/05/2023 Physical Activity Answer Date Recorded On average, how many days pe r week do you engage in moderate to strenuous exercise (like a brisk walk)? 0 06/05/2023 On average, how many minutes do you exercise per day at this level? 0 06/05/2023 Comments No Sex and Gender Information Value Date Recorded Sex Assigned at Choose not to disclose 2:52 PM EST Legal Sex Female 2:50 PM EST Gender Identity Choose not to disclose 2:52 PM EST Sexual Orientation Choose not to disclose 2022 2:52 PM EST documented as of this encounter Plan of Treatment Upcoming Encounters Date Type Department Care Team (Late st Contact Info) Description 10/01/2024 11:00 AM EDT Office Visit [address] [place] [address] Arlyn Llanes PA-C [address] [place] [address] documented as of this encounter Visit Diagnoses Not on filedocumented in this encounter Care Teams Patch Sander Relationship Specialty Start Date End Date Arlyn Llanes PA-C PCP - General Adult Health - PA/APNP/HUB BORER/NURSERY SUPERVISOR 03/17/23 Kalina Martins MD [address] [place] [phone] Endocrinology 09/17/23 Emanuel Mcclelland MD [address] [place] [address] Referring Provider Urology 09/17/23 09/17/23 Taye Andres MD [address] [place] [address] Rheumatology 09/17/23 Jim Jordan [address] [place] [address] Physical Medicine and Rehabilitation 09/17/23 Karen Greenwood Physician Gastroenterology 08/25/23 documented as of this encounter
--- OUTSIDE RECORDS SUMMARY | 2024-08-31 12:50 | XMS_ITS | Encounter Summary ---
Author Organization [facility] Address [address] [place] [address] Care Team Providers Care Legal Investigator Name Role Phone Arlyn Llanes PA-C Primary Care Provi bhavani Kalina Martins MD Unavailable [phone] Emanuel Mcclelland MD Unavailable [phone] Taye Andres MD Unavailable [phone] Jim Jordan Unavailable Encounter Details Date Type Department Care Team (Late st Contact Info) Description 07/23/[address] [facility] CARDIOLOGY SCAN Cardiology, Scan Social History Tobacco Use Types Packs/Day Years Used Date Smoking Tobacco: Former Cigarettes 0.5 30 1 968 - 1998 Smokeless Tobacco: Never Alcohol Use Standard Drinks/Week Comments Never 0 (1 standard drink = 0.6 oz pur e alcohol) PHQ-2 Answer Date Recorded PHQ-2 Total Score 4 05/16/2023 [facility] of Occupat ional Health - Occupational Stress [...] Description 10/01/2024 11:00 AM EDT Office Visit [facility] [address] [facility] [address] [place] [address] Arlyn Llanes PA-C [address] [place] [address] documented as of this encounter Visit Diagnoses Not on filedocumented in this encounter Care Teams Legal Investigator Relationship Specialty Start Date End Date Arlyn Llanes PA-C PCP - General Adult Health - PA/APNP/DIRECTOR OF OUTPATIENT SERVICES/OIL PIPE INSPECTOR HELPER 03/17/23 Kalina Martins MD [address] [place] [phone] Endocrinology 09/17/23 Emanuel Mcclelland MD [address] [place] [address] Referring Provider Urology 09/17/23 09/17/23 Taye Andres MD [address] [place] [address] Rheumatology 09/17/23 Jim Jordan [address] [place] [address] Physical Medicine and Rehabilitation 09/17/23 Karen Greenwood Physician Gastroenterology 08/25/23 documented as of this encounter
--- OUTSIDE RECORDS SUMMARY | 2024-08-31 12:50 | XMS_ITS | Encounter Summary ---
Author Organization [facility] Address [address] [place] [address] Care Team Providers Care Recreation Therapy Aide Name Role Phone Arlyn Llanes PA-C Primary Care Provi bhavani Kalina Martins MD Unavailable [phone] Emanuel Mcclelland MD Unavailable [phone] Taye Andres MD Unavailable [phone] Jim Jordan Unavailable Encounter Details Date Type Department Care Team (Late st Contact Info) Description 08/21/2023 Scanned Document [facility] NEUROLOGY SCAN Neurology, Scan Social History Tobacco Use Types Packs/Day Years Used Date Smoking Tobacco: Former Cigarettes 0.5 30 1 968 - 1998 Smokeless Tobacco: Never Alcohol Use Standard Drinks/Week Comments Never 0 (1 standard drink = 0.6 oz pur e alcohol) PHQ-2 Answer Date Recorded PHQ-2 Total Score 4 05/16/2023 [facility] of Occupat ional Health - Occupational Stress [...] Description 10/01/2024 11:00 AM EDT Office Visit [facility] 100 [facility] [address] [place] [address] Arlyn Llanes PA-C [address] [place] [address] documented as of this encounter Visit Diagnoses Not on filedocumented in this encounter Care Teams Recreation Therapy Aide Relationship Specialty Start Date End Date Arlyn Llanes PA-C PCP - General Adult Health - PA/APNP/TRAVEL MANAGER/PLASTIC SEWER 03/17/23 Kalina Martins MD [address] [place] [phone] Endocrinology 09/17/23 Emanuel Mcclelland MD [address] [place] [address] Referring Provider Urology 09/17/23 09/17/23 Taye Andres MD [address] [place] [address] Rheumatology 09/17/23 Jim Jordan [address] [place] [address] Physical Medicine and Rehabilitation 09/17/23 Karen Greenwood Physician Gastroenterology 08/25/23 documented as of this encounter
--- OUTSIDE RECORDS SUMMARY | 2024-08-31 12:50 | XMS_ITS | Clinical Summary ---
Author Organization [facility] Address [address] [place] [address] Care Team Providers Care Gamemaster Name Role Phone Yesi Curry MD Primary Care Provider [phone] Allergies Active Allergy Reactions Criticality Noted Date Comments Azithromycin 12/06/2021 Medications Medication Sig Dispensed Refills Start Date End Date Status Acetaminophen-Code ine 300-30 MG per tablet acetaminophen 300 mg-codeine 30 mg tablet 0 Active aspirin 81 MG EC tablet Take 81 mg by mouth. 0 07/11/2021 Acti ve Bromfenac Sodium (Prolensa) 0.07 % SOLN Prolensa 0.07 % eye drops 0 Active Calcium Carbonate-Vitamin D (calcium-vitamin D) 500-200 MG-UNIT TABS Oyster Shell Calcium-Vitamin D3 500 mg-5 mcg (200 unit) tablet 0 Active dilTIAZem (TIAZAC) 120 MG 24 hr capsule diltiazem CD 120 mg capsule,extended release 24 hr 0 Active FLUoxetine (PROzac) 40 MG capsule fluoxetine 40 mg capsule 0 10/11/2014 Active ferrous sulfate 325 (65 FE) MG tablet ferrous sulfate 325 mg (65 mg iron) tablet 0 Active enoxaparin (LOVENOX) 40 MG/0.4ML SOSY enoxaparin 40 mg/0.4 mL subcutaneous syringe 0 Active LORazepam (ATIVAN) 0.5 MG tablet lorazepam 0.5 mg tablet 0 Active methocarbamol (ROBAXIN) 500 MG tablet methocarbamol 500 mg tablet 0 Active neomycin-polymyxin -dexamethasone (MAXITROL) 0.1 % ophthalmic suspension owujmgsf-qofxbgqku-ktv ameth 3.5 mg/mL-10,000 unit/mL-0.1% eye drops 0 Activ e ofloxacin (OCUFLOX) 0.3 % ophthalmic solution ofloxacin 0.3 % eye drops 0 Active omeprazole (PriLOSEC) 20 MG capsule omeprazole 20 mg capsule,delayed release 0 Active ondansetron (ZOFRAN) 4 MG tablet ondansetron HCl 4 mg tablet 0 Active pantoprazole (PROTONIX) 40 MG tablet pantoprazole 40 mg tablet,delayed release 0 Activ e potassium chloride ER (K-DUR,KLOR-CON) tablet 20 mEq Klor-Con M20 mEq tablet,extended release 0 Active prednisoLONE acetate (PRED FORTE) 1 % ophthalmic suspension prednisolone acetate 1 % eye drops,suspension 0 Activ e tamsulosin (FLOMAX) 0.4 MG CAPS tamsulosin 0.4 mg capsule 0 Active ZOLMitriptan (ZOMIG) 2.5 MG tablet zolmitriptan 2.5 mg tablet 0 Active traMADol (ULTRAM) 50 MG tablet tramadol 50 mg tablet 0 09/21/2021 A ctive rOPINIRole (REQUIP) 1 MG tablet ropinirole 1 mg tablet 0 09/21/2021 Ac tive pravastatin (PRAVACHOL) tablet 10 mg pravastatin 10 mg tablet 0 10/27/2020 Active oxyCODONE-acetamin ophen (PERCOCET) 5-325 MG per tablet oxycodone-acetaminophe n 5 mg-325 mg tablet 0 Active Diclofenac Sodium 1 % GEL diclofenac 1 % topical gel 0 10/27/2020 Active clindamycin (CLEOCIN) 300 MG capsule clindamycin HCl 300 mg capsule 0 Active chlorthalidone (HYGROTON) 25 MG tablet chlorthalidone 25 mg tablet 0 Active cephalexin (KEFLEX) 500 MG capsule cephalexin 500 mg capsule 0 Active Active Problems Problem Noted Date Diagnosed Date Class 2 obesity 12/07/2021 Hyperlipidemia 12/07/2021 Hypertension 12/07/2021 Migraine headache 12/07/2021 Osteoporosis 12/06/2021 Status post total hip replacement, left 07/10/19 22 Depression 05/09/2021 Overview: Last Assessment & Plan: Continue on fluoxetine 40 mg capsule PO every morning. GERD (gastroesophageal reflux disease) Overview: Last Assessment & Plan: Continue on omeprazole 20 mg PO daily. RLS (restless legs syndrome) 05/09/2021 Overview: Last Assessment & Plan: Continue on ropinirole 1 mg oral tablet (takes 2 tabs in AM, 2-3 mid-day and 3 tabs in PM). Fall on same level from slip ping, tripping and stumbling with subsequent striking against other object, initial encounter 02/21/2020 Contusion of left chest wall 02/17/2020 Social History Tobacco Use Types Packs/Day Years Used Date Smoking Tobacco: Never Assessed Sex and Gender Information Value Date Recorded Sex Assigned at Female 12/07/2021 8:53 AM EDT Gender Identity Not on file Sexual Orientation Not on file Job Start Date Occupation Industry Not on file Not on file Not on file Last Filed Vital Signs Vital Sign Reading Time Taken Comments Blood Pressure 123/77 12/07/2021 2:12 PM EDT Pulse 91 12/07/2021 2:12 PM EDT Temperature 37 ??C (98.6 ??F) 12/07/2021 2:12 PM EDT Respiratory Rate - - Oxygen Saturation 99% 12/07/2021 2:12 PM EDT Inhaled Oxygen Concentration - - Weight 94.1 kg (207 lb 7.3 oz) 12/07/2021 2:12 P M EDT Height - - Body Mass Index - - Plan of Treatment Health Maintenance Due Date Last Done Comments Hepatitis C Screening 1950 COVID-19 Vaccine (#1) 04/21/1952 Depression Screening 1963 Preventative Health Evaluation 10/20/1969 DTap / Tdap / Td (1 - Tdap) 10/20/1970 Colon Cancer Screening (Colonoscopy) 10/20/1996 Breast Cancer Screening (Mammogram) 10/20/2001 Shingrix-Zoster Vaccine (1 of 2) 10/20/2001 Fall Risk Assessment 10/20/2016 Osteoporosis Screening (DEXA Scan) 10/20/2016 Pneumococcal Vaccine (1 of 1 - PCV) 10/20/2016 Influenza Vaccine (#1) 2023 RSV Adult > 60+ Yrs or Pregn ant (1 - 1-dose 75+ series) 10/20/2026 Hepatitis B Vaccines Aged Out No long er eligible based on patient's age to complete this topic RSV Ped < 20 months Aged Out No longe r eligible based on patient's age to complete this topic Care Teams Gamemaster Relationship Specialty Start Date End Date Yesi Curry MD PCP - General Internal Medicine 03/10/17
--- OUTSIDE RECORDS SUMMARY | 2024-08-31 12:50 | XMS_ITS | Encounter Summary ---
Author Organization [facility] Address [address] [place] [address] Care Team Providers Care Flotation Operator Name Role Phone Arlyn Llanes PA-C Primary Care Provi bhavani Kalina Martins MD Unavailable [phone] Taye Andres MD Unavailable [phone] Jim Jordan Unavailable Encounter Details Date Type Department Care Team (Late st Contact Info) Description 11/07/2023 Scanned Document [facility] [address] [place] [address] Arlyn Llanes PA-C [address] [place] [address] Social History Tobacco Use Types Packs/Day Years Used Date Smoking Tobacco: Former Cigarettes 0.5 30 1 968 - 1998 Smokeless Tobacco: Never Alcohol Use Standard Drinks/Week Comments Never 0 (1 standard drink = 0.6 oz pur e alcohol) PHQ-2 Answer Date Recorded PHQ-2 Total Score 0 09/16/2023 [facility]at ional Health - Occupational Stress [...] Description 10/01/2024 11:00 AM EDT Office Visit [facility] 100 [facility] [address] [place] [address] Arlyn Llanes PA-C [address] [place] [address] documented as of this encounter Visit Diagnoses Not on filedocumented in this encounter Care Teams Flotation Operator Relationship Specialty Start Date End Date Arlyn Llanes PA-C PCP - General Adult Health - PA/APNP/CLINICAL EVALUATOR/PILE OPERATOR 03/17/23 Kalina Martins MD [address] [place] [phone] Endocrinology 09/17/23 Taye Andres MD [address] [place] [address] Rheumatology 09/17/23 Jim Jordan [address] [place] [address] Physical Medicine and Rehabilitation 09/17/23 Karen Greenwood Physician Gastroenterology 08/25/23 documented as of this encounter
--- OUTSIDE RECORDS SUMMARY | 2024-08-31 12:50 | XMS_ITS | Encounter Summary ---
Author Organization [facility] Address [address] [place] [address] Care Team Providers Care Open Pit Quarry Supervisor Name Role Phone Arlyn Llanes PA-C Primary Care Provi bhavani Kalina Martins MD Unavailable [phone] Emanuel Mcclelland MD Unavailable [phone] Taye Andres MD Unavailable [phone] Jim Jordan Unavailable Reason for Visit * Reason Comments Other Encounter Details Date Type Department Care Team (Late st Contact Info) Description 05/30/2023 Telephone [facility] [address] [place] [address] Jaz Aguilera, CORD SPLICER 7 [facility] [address] [place] [phone] Other Social History Tobacco Use Types Packs/Day Years Used Date Smoking Tobacco: Former Cigarettes 0.5 30 1 968 - 1998 Smokeless Tobacco: Never Alcohol Use Standard Drinks/Week Comments Never 0 (1 standard drink = 0.6 oz pur e alcohol) PHQ-2 Answer Date Recorded PHQ-2 Total Score 4 05/16/2023 [facility] - Occupational Stress Questionnaire Answer Date Recorded Do you feel stress - tense, restless, nervous, or anxious, or unable to sleep at night because your mind is troubled all the time - these days? Not at all 05/05/2023 Physical Activity Answer Date Recorded Days of Exercise per Week 0 days 2023 Minutes of Exercise per Session 0 min 05/05/2023 Comments No Sex and Gender Information Value [...] 10/01/2024 11:00 AM EDT Office Visit [address] [place] [id number] Arlyn Llanes PA-C [address] [place] [phone] documented as of this encounter Visit Diagnoses Not on filedocumented in this encounter Care Teams Open Pit Quarry Supervisor Relationship Specialty Start Date End Date Arlyn Llanes PA-C PCP - General Adult Health - PA/CARLOS ENRIQUE/INSULATION BOARD HEAD SAW OPERATOR/CORD SPLICER 03/17/23 Kalina Martins MD [address] [place] [phone] Endocrinology 09/17/23 Emanuel Mcclelland MD [address] [place] [phone] Referring Provider Urology 09/17/23 09/17/23 Taye Andres MD [address] [place] [phone] Rheumatology 09/17/23 Jim Jordan [address] [place] [phone] Physical Medicine and Rehabilitation 09/17/23 Karen Greenwood Physician Gastroenterology 08/25/23 documented as of this encounter
--- OUTSIDE RECORDS SUMMARY | 2024-08-31 12:50 | XMS_ITS ---
Author Name [facility] Organization Unknown History of Medication Use Medication Directions Dispensed Refills Start Date End Date Stat us buPROPion (WELLBUTRIN) 75 MG tablet Take 1 tablet (75 mg total) by mouth daily. 10/23/2023 active amLODIPine (NORVASC) 5 MG tablet Take 1 tablet (5 mg total) by mouth daily. 10/20/2023 active pravastatin (PRAVACHOL) 10 MG tablet Take 1 tablet (10 mg total) by mouth daily. 09/17/2023 active LORazepam (ATIVAN) 0.5 MG tablet Take 1 tablet (0.5 mg total) by mouth nightly as needed for anxiety. For anxiety 05/30/2023 11/03/2023 active FLUoxetine (PROzac) 40 MG capsule Take 1 capsule (40 mg total) by mouth daily. 05/16/2023 active calcium carbonate (TUMS) 500 MG chewable tablet Chew 1 tablet (500 mg total) every 4 (four) hours as needed for indigestion or heartburn. active calcium carbonate-vitamin D (CALTRATE+D) 600 mg-10 mcg tablet Take 1 tablet by mouth 2 times a day. active meloxicam (MOBIC) 7.5 MG tablet Take 1 tablet (7.5 mg total) by mouth daily. active Multiple Vitamins-Minerals (PRESERVISION AREDS PO) Take by mouth. active traMADol (ULTRAM) 50 MG tablet Take 1 tablet (50 mg total) by mouth 3 times daily (every 8 hours) as needed for severe pain. active Vitamin D3 (CHOLECALCIFEROL) 50 MCG (2000 UT) tablet Take 1 tablet (2,000 Units total) by mouth daily. active Allergies Allergen Reaction Severity Comment Documented Date Source Statu s [id number] ANTIMIGRAINE AGENTS ENS_AONECT Problems Problem Status Onset Date Problem Type Date of Resolution Source Obesity, Class II, BMI 35-39.9 active [facility] Prediabetes active EncounterDiagnosisAct [facility] Hypocalcemia active 2023-10-07 ProblemAct [facility] IFG (impaired fasting glucose) active 2023-05-25 ProblemAct [facility] Multinodular goiter active 2023-05-05 ProblemAct [facility] Morbid obesity active 2023-05-16 ProblemAct [facility] [place] Anxiety active 2023-05-05 ProblemAct [facility] Hypertension active 2021-12-07 ProblemAct [facility] Major depressive disorder in partial remission active 2023-05-16 ProblemAct [facility] Pain of right calf active 2024-04-02 ProblemAct ENS_AONECT Immunizations Vaccine Date Source Lot Number Status Influenza, Trivalent (FLUAD) Adjuvanted Preservative Free IM 65 years and older 01/04/2024 [facility] [id number] completed RSV VACCINE,Uspecified 01/04/2024 [facility] [id number] co mpleted Influenza High-Dose Quadriva lent,(FLUZONE HIGH-DOSE), Perservative Free IM 0.7 mL 65 years and older 01/22/2023 [facility] [id number] completed Zoster Vaccine Recombinant (Shingrix) 11/25/2022 [facility] completed Zoster Vaccine Recombinant (Shingrix) 08/29/2022 [facility] [id number] completed Zoster Vaccine Recombinant (Shingrix) 05/28/2022 [facility] [id number] completed Influenza High-Dose Quadriva lent,(FLUZONE HIGH-DOSE), Perservative Free IM 0.7 mL 65 years and older 01/21/2022 [facility] [id number] completed Tdap 02/14/2021 [facility] [id number] completed Covid-19 MRNA Vaccine - Pfiz er 12+ (Purple Cap) 01/30/2021 [facility] completed Influenza High-Dose Quadriva lent,(FLUZONE HIGH-DOSE), Perservative Free IM 0.7 mL 65 years and older 01/22/2021 [facility] completed Influenza, Quadrivalent (FLU AD) Adjuvanted Preservative Free IM 65 years and older 01/22/2021 [facility] [id number] completed Influenza, Unspecified 01/22/2021 [facility] co mpleted Covid-19 MRNA Vaccine - Pfiz er 12+ (Purple Cap) 06/26/2020 [facility] completed Covid-19 MRNA Vaccine - Pfiz er 12+ (Purple Cap) 06/05/2020 [facility] completed Influenza High-Dose Quadriva lent,(FLUZONE HIGH-DOSE), Perservative Free IM 0.7 mL 65 years and older 01/19/2020 [facility] [id number] completed Influenza High-Dose Quadriva lent,(FLUZONE HIGH-DOSE), Perservative Free IM 0.7 mL 65 years and older 01/01/2019 [facility] completed Influenza High-Dose Trivalen t,(FLUZONE HIGH-DOSE), Perservative Free IM 0.5 mL 65 years and older 01/01/2019 [facility] [id number] completed Influenza, Quadrivalent (FLU CELVAX) MDCK, Preservative Free IM 01/01/2019 [facility] completed TD Preservative Free 05/27/2018 [facility] [id number] comp leted Td, Unspecified 05/27/2018 [facility] completed Influenza High-Dose Quadriva lent,(FLUZONE HIGH-DOSE), Perservative Free IM 0.7 mL 65 years and older 01/23/2018 [facility] completed Influenza High-Dose Trivalen t,(FLUZONE HIGH-DOSE), Perservative Free IM 0.5 mL 65 years and older 01/23/2018 [facility] [id number] completed Pneumococcal Polysaccharide 23-Valent 12/03/2017 [facility] [id number] completed Influenza High-Dose Quadriva lent,(FLUZONE HIGH-DOSE), Perservative Free IM 0.7 mL 65 years and older 01/28/2017 [facility] completed Influenza High-Dose Trivalen t,(FLUZONE HIGH-DOSE), Perservative Free IM 0.5 mL 65 years and older 01/28/2017 [facility] [id number] completed Influenza, Quadrivalent (FLU ARIX, AFLURIA, FLULAVAL, FLUZONE) Preservative Free IM 02/19/2016 [facility] [id number] completed Influenza, Quadrivalent (FLU CELVAX) MDCK, Preservative Free IM 02/19/2016 [facility] completed Pneumococcal Conjugate 13-Valent 11/02/2015 [facility] [id number] completed Influenza Virus Trivalent Sp lit Vaccine (MDV) IM 01/10/2015 [facility] [id number] completed Influenza, Quadrivalent (FLU CELVAX) MDCK, Preservative Free IM 01/10/2015 [facility] completed Influenza Virus Trivalent Sp lit Vaccine (MDV) IM 01/28/2013 [facility] [id number] completed Influenza, Quadrivalent (FLU CELVAX) MDCK, Preservative Free IM 01/28/2013 [facility] completed Zoster Vaccine Live/Attenuated (Zostavax) 02/26/2012 [facility] [id number] completed Hepatitis B 12/12/2011 [facility] [id number] completed Hepatitis B 07/12/2011 [facility] [id number] completed Hepatitis B 06/12/2011 [facility] [id number] completed Influenza Virus Trivalent Sp lit Vaccine (MDV) IM 01/08/2011 [facility] [id number] completed Influenza, Quadrivalent (FLU CELVAX) MDCK, Preservative Free IM 01/08/2011 [facility] completed Influenza Virus Trivalent Sp lit Vaccine (MDV) IM 02/02/2010 [facility] [id number] completed Influenza, Quadrivalent (FLU CELVAX) MDCK, Preservative Free IM 02/02/2010 [facility] completed Pneumococcal Polysaccharide 23-Valent 01/09/2010 [facility] [id number] completed Mumps 09/22/2009 [facility] completed H1N1 Inj Preservative Free 02/14/2009 [facility] completed H1N1 Nasal 02/14/2009 [facility] completed Tdap 02/05/2008 [facility] [id number] completed Influenza Virus Trivalent Sp lit Vaccine (MDV) IM 02/02/2008 [facility] completed Influenza, Quadrivalent (FLU CELVAX) MDCK, Preservative Free IM 02/02/2008 [facility] completed Pneumococcal Polysaccharide 23-Valent 02/15/2002 [facility] completed Encounters Encounter Type Encounter Reason Primary Diagnosis Location Date Ambulatory Obesity, class 2 Obesity, class 2 [facility] 07/21/2024 Ambulatory Influenza due to other identified influenza virus with other respiratory manifestations Influenza due to other identified influenza virus with other respiratory manifestations [facility] 06/16/2024 Ambulatory Acute cough Acute cough [facility] 05/25/2024 Ambulatory [facility] 04/06/2024 Ambulatory [facility] 04/02/2024 Ambulatory [facility] 04/02/2024 Ambulatory [facility] 04/02/2024 Ambulatory [facility] 04/02/2024 Ambulatory [facility] 04/02/2024 Ambulatory Obesity, class 2 Obesity, class 2 [facility] 02/19/2024 Ambulatory Cellulitis of left lower limb Cellulitis of left lower limb [facility] 01/08/2024 Ambulatory Pain in left leg Pain in left leg [facility] 12/31/2023 Ambulatory Essential (primary) hypertension Essential (primary) hypertension [facility] 12/12/2023 Ambulatory Obesity, unspecified Obesity, unspecified [facility] 10/23/2023 Ambulatory Secondary hypertension, unspecified Secondary hypertension, unspecified [facility] 10/20/2023 Ambulatory Age-related osteoporosis without current pathological fracture Age-related osteoporosis without current pathological fracture [facility] 09/17/2023 Ambulatory Morbid (severe) obesity due to excess calories Morbid (severe) obesity due to excess calories [facility] 07/28/2023 Ambulatory Gastro-esophageal reflux disease without esophagitis Gastro-esophageal reflux disease without esophagitis [facility] 06/26/2023 Ambulatory Morbid (severe) obesity due to excess calories Morbid (severe) obesity due to excess calories [facility] 06/05/2023 Ambulatory Age-related osteoporosis without current pathological fracture Age-related osteoporosis without current pathological fracture [facility] 05/16/2023 Ambulatory Abnormal weight gain Abnormal weight gain [facility] 05/05/2023 Ambulatory [facility] 04/22/2023 Care Team Organization Name Specialty Phone Email Start Date End Da te [facility] 05/18/2023 [facility] DWIGHT Primary [facility] 05/18/2023 [facility] 04/22/2023 08/21/2024 [facility] SOFIYA QUINTANILLA Primary Care 04/22/2023 08/21/2024 [facility] GINA QUINTANILLA Primary Care 04/22/2023 05/05/2023
--- OUTSIDE RECORDS SUMMARY | 2024-08-31 12:50 | XMS_ITS | Data Portability ---
Author Organization [facility] [email or web address], [place] Address [address] [place] [address] [place] [address] Care Team Providers Care Campaign Advisor Name Role Phone GIOVANI MORALES Referring Provider Unavailable GIOVANI MORALES Primary Care Provider GINA QUINTANILLA Primary Care Provider [facility] Primary Care Provider Assessment Encounter Date Assessment Date Assessment LastModified by Organization Details LastModified Time 03/15/2021 03/15/2021 IMPRESSION: --Restless leg syndrome. --Stumbling imbalance with falls, likely relating to multifocal bilateral radiculopathy relating to a predominant part of ~2010 onset stumbling, ~2011 onset falling, ~1 fall per year, ~6 episodes of stumbling per year, more numerous feelings of mild imbalance; no feeling of worsening. RESTLESS LEG SYNDROME: Ropinirole total date dose may be up to 24 mg. Side effects may preclude such a dose, however. We discussed potential side effects. We decided again on increase, as detailed below. Lumbar radiculopathy is the likely trigger for restless leg syndrome as peripheral nerve damage, either at the roots or distally are known correlates for restless leg syndrome. There has been no parkinsonism on exam to suggest prodrome of Parkinson's disease or other parkinsonian syndrome of dopaminergic depletion. This is not excluded of course. She reports ferritin was normal and April 2019. I defer to primary care for any additional iron monitoring in the context of its correlation with restless leg syndrome. MOOD: She is ready to give up. I defer to primary care for close monitoring of mood and consideration of intervention as necessary. We discussed that compulsiveness is a rare side effect of ropinirole. She has always been compulsive but this has not changed and she has been on ropinirole. She will monitor. FALLING: She is still falling, even with a cane. She is in physical therapy and they are doing both strengthening and stretching and I encouraged her in this direction. I encouraged her especially on home exercises. She fell without walker or cane in August 2020 when she was feeling well. She fell with a cane recently even though she graduated from a walker. I told her that with her predisposition to fall that I think is from chronic radiculopathy that stuck in a get better, she might do well to think about using a walker permanently. She thinks this is horrible. She is ashamed of using even a cane. I told her, on the other hand, she might feel even worse about yet another fall and another hip fracture. She is noncommittal. We previously pursued studies of spinal cord because of exam sign of Babinski sign, transient on the right, again not found again, persistent on the left from April 2019. We were looking for abnormalities that might additionally contribute to her stumbling imbalance and found none. We also have found no metabolic derangement to contribute. The left-sided Babinski sign remains of uncertain origin. I do not believe brain MRI is indicated as I do not believe it provides a management direction. For instance, should it be a very early sign of an atypical parkinsonian syndrome that may have a Babinski sign, there is no specific treatment for that. As of April 2019, there has been no parkinsonian signs of rigidity, bradykinesia, tremor or dysrhythmic finger/foot movement to suggest a parkinsonian variant syndrome, which can present with gait imbalance and plantar extensor signs. To review diagnostic pathway with respect to lumbar radiculopathy: Neurological exam reveals left side predominant distal lower extremity weakness in ankle eversion and big toe dorsiflexion implicating L5; and more mild right side weakness in big toe dorsiflexion, which could relate to L5 but is more nonspecific. EMG nerve conduction studies are suggestive of multifocal bilateral radiculopathic abnormality with the suggestions more or less certain depending on the locus, as detailed above. There is no evidence of lower extremity peripheral neuropathy. Neurosurgery office notes (detailed above) documented left side distal lower extremity weakness likely explaining the above described weakness I find on exam. This also explains the left L5-S1 active and chronic radiculopathy on needle EMG studies. The activity I found was minimal and activity can persist for up to about a year after the injuring entity is removed. In addition, history provided by Dr. Merlene River of 2015 L4-L5 posterior lumbar fusion plausibly explains the possible right-sided L3-L4 and L5 chronic inactive radiculopathy that are also seen on needle EMG. There is significant reduction of right sided vibratory sense which is nonspecific but, being unilateral, and likely relates to nerve root issues. At the right knee were vibratory sensation is absent, this could relate to joint sensation afferents that might have been affected in the kari-surgical time frame August 2017. Discussion across his range of issues greater than 50% greater than 40 minutes PLAN Zuri Sharma March 15, 2021 CONTINUE, under guidance of rheumatology: Physical therapy, with home exercises, for balance while walking, and for increasing hip flexor strength. INCREASE ropinirole 1 mg tablets from 6 tablets daily up to 8 tablets daily with the ninth tablet as needed: Requip (generic ropinirole), 1mg tabs: 9 AM 2 tablets 2:30 PM 3 tablets 8 PM 3 tablets A 9 tablet as needed. Ropinirole may occasionally cause side effects of tiredness, including sudden sleepiness, nausea, confusion, compulsiveness, or vivid dreams. If side effects are mild, wait a few days-side effects often go away. If there is nausea, take the medication with a small amount of food. If side effects are not mild, or do not go away, return to the previous dose at which you did not have side effects. Follow-up in 6 months juju Not available 03/15/2021 14:20:52 05/07/2023 05/07/2023 IMPRESSION: --Restless leg syndrome. --Stumbling imbalance with falls, likely relating to multifocal bilateral radiculopathy relating to a predominant part of ~2010 onset stumbling, ~2011 onset falling, ~1 fall per year, ~6 episodes of stumbling per year, more numerous feelings of mild imbalance; no feeling of worsening. RESTLESS LEG SYNDROME: There are two issues I wish to address, I tell her: Her restless legs; and the message she mentions she has gotten from primary care that my previous dosage of 9 mg/day is too much. From my understanding, ropinirole may be dosed up to 24 mg/day as long as careful attention is paid to side effects. I rarely go up to that dose but it is not infrequent that I go up to 9 mg/day. For the issue on maximum dose of ropinirole, I will call primary care to discuss this. For the issue of helping her restless leg symptoms today: Although she mentions that she usually used all 9 mg after we went up to the 8 mg +1 mg as needed March 15, 2021, she seems to have had a large supply of leftover medication after primary care reduced her medication down to 1 mg three times a day. I suspect that she does not need eight or 9 mg/day of the ropinirole. I will provide the patient with a prescription of 5 mg/day, with an extra dose as needed, and we will see how this helps at follow-up. She has not been good and following up at less then yearly intervals and we briefly discussed that I would need good follow-up for me to keep prescribing the medication. As we were finishing up, she wonders if there are other medications that could be used. I told her that her work but we will discuss this at a follow-up. Gabapentin helps significantly. It does not have the same characteristic of augmentation/tole franc as do dopamine agonists. However, it has a side effect of increased falling among the elderly which would put this patient at a special risk, given her baseline suboptimal balance. LUMBAR RADICULOPATH February 2021 Lumbar radiculopathy is the likely trigger for restless leg syndrome as peripheral nerve damage, either at the roots or distally are known correlates for restless leg syndrome. There has been no parkinsonism on exam to suggest prodrome of Parkinson's disease or other parkinsonian syndrome of dopaminergic depletion. This is not excluded of course. She reports ferritin was normal and April 2019. I defer to primary care for any additional iron monitoring in the context of its correlation with restless leg syndrome. MOOD: February 2021 She is ready to give up. I defer to primary care for close monitoring of mood and consideration of intervention as necessary. We discussed that compulsiveness is a rare side effect of ropinirole. She has always been compulsive but this has not changed and she has been on ropinirole. She will monitor. FALLING:February 2021 She is still falling, even with a cane. She is in physical therapy and they are doing both strengthening and stretching and I encouraged her in this direction. I encouraged her especially on home exercises. She fell without walker or cane in August 2020 when she was feeling well. She fell with a cane recently even though she graduated from a walker. I told her that with her predisposition to fall that I think is from chronic radiculopathy that stuck in a get better, she might do well to think about using a walker permanently. She thinks this is horrible. She is ashamed of using even a cane. I told her, on the other hand, she might feel even worse about yet another fall and another hip fracture. She is noncommittal. We previously pursued studies of spinal cord because of exam sign of Babinski sign, transient on the right, again not found again, persistent on the left from April 2019. We were looking for abnormalities that might additionally contribute to her stumbling imbalance and found none. We also have found no metabolic derangement to contribute. The left-sided Babinski sign remains of uncertain origin. I do not believe brain MRI is indicated as I do not believe it provides a management direction. For instance, should it be a very early sign of an atypical parkinsonian syndrome that may have a Babinski sign, there is no specific treatment for that. As of April 2019, there has been no parkinsonian signs of rigidity, bradykinesia, tremor or dysrhythmic finger/foot movement to suggest a parkinsonian variant syndrome, which can present with gait imbalance and plantar extensor signs. To review diagnostic pathway with respect to lumbar radiculopathy: Neurological exam reveals left side predominant distal lower extremity weakness in ankle eversion and big toe dorsiflexion implicating L5; and more mild right side weakness in big toe dorsiflexion, which could relate to L5 but is more nonspecific. EMG nerve conduction studies are suggestive of multifocal bilateral radiculopathic abnormality with the suggestions more or less certain depending on the locus, as detailed above. There is no evidence of lower extremity peripheral neuropathy. Neurosurgery office notes (detailed above) documented left side distal lower extremity weakness likely explaining the above described weakness I find on exam. This also explains the left L5-S1 active and chronic radiculopathy on needle EMG studies. The activity I found was minimal and activity can persist for up to about a year after the injuring entity is removed. In addition, history provided by Dr. Merlene River of 2015 L4-L5 posterior lumbar fusion plausibly explains the possible right-sided L3-L4 and L5 chronic inactive radiculopathy that are also seen on needle EMG. There is significant reduction of right sided vibratory sense which is nonspecific but, being unilateral, and likely relates to nerve root issues. At the right knee were vibratory sensation is absent, this could relate to joint sensation afferents that might have been affected in the kari-surgical time frame August 2017. Discussion across his range of issues greater than 50% greater than 40 minutes PLAN Zuri Sharma may 07, 2023 CONTINUE, under guidance of rheumatology: Physical therapy, with home exercises, for balance while walking, and for increasing hip flexor strength. INCREASE ropinirole 1 mg tablets Increase from 1 tab tid to: 1.5 tablets at 9 AM, 1.5 tablets, 2:30 PM, 2 tablets 8 PM Ropinirole may occasionally cause side effects of tiredness, including sudden sleepiness, nausea, confusion, compulsiveness, or vivid dreams. If side effects are mild, wait a few days-side effects often go away. If there is nausea, take the medication with a small amount of food. If side effects are not mild, or do not go away, return to the previous dose at which you did not have side effects. Follow-up in 6 weeks [email or web address] Not available 05/07/2023 11:26:35 Plan of Treatment Reminders Order Date Submit Date Provider Last Modified By Organization Details Last Modified Time Details Appointments None recorded. Lab None recorded. Referral None recorded. Procedures None recorded. Surgeries None recorded. Imaging None recorded. Medication Orders ropinirole 1 mg tablet 2023 024 [facility] #[id number], [address] [place], [address], 4 11:27:43 ropinirole 1 mg tablet 2020 021 [facility] #[id number], [address] [place], [address], 14:01:27 Patient TargetsNo targets recorded. Patient Instructions Encounter Date Encounter Id Patient Instructions Last Modified By Organization Details Last Modified Time 03/15/2021 [id number] Previous discussions: Initial consultation March 16, 2018: I have offered physical therapy as she is in danger of further falls and further fractures. This is separate then the work that she is doing of [facility] to help her ongoing left side predominant back pain and lower extremity pain. She does not ? s ee much value? in physical therapy and declines this. She again declines physical therapy for gait and balance home exercises today. ossen Not available 03/15/2021 13:42:46 05/07/2023 [id number] Previous discussions: Initial consultation March 16, 2018: I have offered physical therapy as she is in danger of further falls and further fractures. This is separate then the work that she is doing of [facility] to help her ongoing left side predominant back pain and lower extremity pain. She does not ? s ee much value? in physical therapy and declines this. She again declines physical therapy for gait and balance home exercises today. [email or web address] Not available 05/07/2023 10:46:29 Reason for Referral None Reported. Procedures Surgical History Date Name Laterality Status Provider Name and Address Organization Details Recorded Time 05/07/2023 DATA REVIEW completed Rob Her MD [address] [place] [address], [phone], [facility] Neurology [facility] 05/07/2023 10:46:29 03/15/2021 DATA REVIEW completed Rob Her MD [address] [place] [address], [phone], [facility] Neurology [facility] 03/15/2021 13:39:23 Imaging Results None recorded. Procedure Notes None recorded. Medical Equipment None Reported. Allergies Allergen ID Allergen Name Allergen Category Reaction Reaction Severity Criticality Documentation Date Start Date Code Code System Note Provider Name and Address Organization Details Recorded Time 770 azithromy franki medicatio n Not available Not available Not available 03/15/2021 60445 RxNorm Pastora Hanson [facility] Neurology [facility] 13:41:51 Medications Name Sig Start Date Stop Date Status Note LastModified by Organization Details LastModified Time fluoxetine 40 mg capsule TAKE 1 CAPSULE BY MOUTH EVERY DAY active Not Available Not Available No t Available amoxicillin 500 mg capsule TAKE 4 CAPSULES BY MOUTH ONE HOUR PRIOR TO THE PROCEDURE. active Not Available Not Available N ot Available fluconazole 100 mg tablet TAKE 1 TABLET BY MOUTH EVERY DAY active Not Available Not Available No t Available methocarbamo l 500 mg tablet active Not Available Not Available Not Available nystatin 100,000 unit/mL oral suspension SWISH AND SWALLOW 5ML 4 TIMES A DAY FOR 10 DAYS active Not Available Not Available No t Available prednisone 10 mg tablet PLEASE SEE ATTACHED FOR DETAILED DIRECTIONS active Not Available Not Available N ot Available doxycycline hyclate 100 mg capsule TAKE 1 CAPSULE BY MOUTH TWICE A DAY active Not Available Not Available No t Available ropinirole 1 mg tablet TAKE 1.5 TABLETS BY MOUTH TWICE DAILY AT 9AM & 2:30PM AND TAKE 2 TABLETS BY MOUTH ONCE DAILY AT 8PM. active Not Available Not Available No t Available clindamycin HCl 300 mg capsule active Not Available Not Available Not Available ofloxacin 0.3 % eye drops INSTILL 1 DROP INTO RIGHT EYE 3 TIMES A DAY active Not Available Not Available Not Available ondansetron HCl 4 mg tablet active Not Available Not Available Not Available acetaminophe n 300 mg-codeine 30 mg tablet active Not Available Not Available Not Available chlorthalido ne 25 mg tablet active Not Available Not Available Not Available tramadol 50 mg tablet TAKE 1 TABLET BY MOUTH TWICE A DAY NEEDED active Not Available Not Available No t Available meloxicam 7.5 mg tablet TAKE 1 TABLET BY MOUTH TWICE A DAY active Not Available Not Available No t Available oxycodone-ac etaminophen 5 mg-325 mg tablet active Not Available Not Available Not Available zolmitriptan 2.5 mg tablet active Not Available Not Available Not Available prednisolone acetate 1 % eye drops,suspen xiomara INSTILL ONE DROP INTO THE LEFT EYE FOUR TIMES A DAY DIRECTED FOR 1 WEEK active Not Available Not Available N ot Available lorazepam 0.5 mg tablet TAKE 1 TABLET BY MOUTH EVERY DAY NEEDED FOR ANXIETY active Not Available Not Available No t Available pravastatin 10 mg tablet TAKE 1 TABLET BY MOUTH EVERYDAY AT BEDTIME active Not Available Not Available No t Available tamsulosin 0.4 mg capsule active Not Available Not Available Not Available cephalexin 500 mg capsule active Not Available Not Available Not Available pantoprazole 40 mg tablet,delay ed release active Not Available Not Available N ot Available ferrous sulfate 325 mg (65 mg iron) tablet 1 TABLET BY MOUTH DAILY, TAKE WITH VITAMIN C OR ORANGE JUICE active Not Available Not Available No t Available neomycin-nancy ymyxin-dexam eth 3.5 mg/mL-10,000 unit/mL-0.1% eye drops active Not Available Not Available No t Available nystatin 100,000 unit/gram topical cream APPLY TO THE AFFECTED AREA TWICE DAILY active Not Available Not Available No t Available omeprazole 20 mg capsule,arturo yed release TAKE 1 CAPSULE BY MOUTH EVERY DAY IN THE MORNING BEFORE BREAKFAST active Not Available Not Available No t Available diltiazem CD 120 mg capsule,exte nded release 24 hr active Not Available Not Available Not Available etodolac 400 mg tablet active Not Available Not Available No t Available furosemide 20 mg tablet TAKE 1 TABLET BY MOUTH ONCE DAILY. active Not Available Not Available No t Available nystatin 100,000 unit/gram topical powder APPLY TO BODY FOLDS DAILY FOR PREVENTION THREE TIMES DAILY active Not Available Not Available No t Available lorazepam 1 mg tablet TAKE ONE TABLET BY MOUTH ONE HOUR BEFORE THE PROCEDURE. active Not Available Not Available N ot Available metformin ER 500 mg tablet,exten ded release 24 hr TAKE 1 TABLET BY MOUTH TWICE A DAY WITH MEALS. SWALLOW WHOLE. DO NOT CRUSH, BREAK OR CHEW. active Not Available Not Available No t Available amoxicillin 875 mg-potassium clavulanate 125 mg tablet TAKE 1 TABLET BY MOUTH TWICE A DAY FOR 10 DAYS active Not Available Not Available No t Available tobramycin 0.3 %-dexamethas one 0.1 % eye drops,suspen xiomara INSTILL 1 DROP INTO RIGHT EYE 4 TIMES A DAY DIRECTED active Not Available Not Available Not Available oxycodone 5 mg tablet TAKE 1 TABLET BY MOUTH EVERY 6 HOURS NEEDED FOR 2 DAYS, FOR PAIN. active Not Available Not Available No t Available Oyster Shell Calcium-Therese min D3 500 mg-5 mcg (200 unit) tablet active Not Available Not Available Not Available enoxaparin 40 mg/0.4 mL subcutaneous syringe active Not Available Not Available Not Available Klor-Con M20 mEq tablet,exten ded release active Not Available Not Available Not Available oxycodone 10 mg tablet active Not Available Not Available No t Available diclofenac 1 % topical gel active Not Available Not Available Not Available Prolensa 0.07 % eye drops active Not Available Not Available Not Available BinaxNOW COVID-19 Ag Self Test kit FOLLOW PACKAGE DIRECTIONS active Not Available Not Available N ot Available Vitals None Recorded Social History None recorded. Functional Status None recorded. Mental Status None recorded. Family History Nothing Reported. Medical History No medical history recorded. Gynecological HistoryNo gynecological history recorded. Obstetrics History GPAL:G 0 P 0 0 0 0 Past Encounters Encounter ID Performer Location Encounter Start Date Encounter Closed Date Diagnosis/Indication Diagnosis SNOMED-CT Code Diagnosis ICD10 Code Diagnosis Note [id number] Rob Her MD [facility] [address] [place] [address] [place] [id number] 03/15/2021 13:30:01 03/15/2021 14:03:21 Keeps losing balance 286900532 R26.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 169338716 G25.81 Lumbar radiculopathy 128 163251 M54.16 [id number] Rob Her MD [facility] [address] [place] [address] [place] [address] 05/07/2023 10:22:54 05/07/2023 14:15:34 Keeps losing balance 180231103 R26.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 886672506 G25.81 Lumbar radiculopathy 128 355219 M54.16 Health Concerns Section Related Observation LastModified by Organization Detai ls LastModified Time None Recorded Concern Status LastModified by Organization Details LastModified Time None Recorded Advance Directives Directive None Recorded Payers Encounter Date Sequence Insurance Name Policy Number Policy Rodriguez Covered Member ID Rodriguez Member ID Guarantor Name 03/15/2021 1 [place] [employer] Zuri Sharma [id number] Zuri Sharma 03/15/2021 2 [place] [id number] Zuri Leachis [id number] Zuri Leachis 05/07/2023 1 [place] Zuri Sharma [id number] Zuri Leachis 05/07/2023 2 [place] [id number] Zuri Leachis [id number] Zuri Sharma Notes Date Note Type Note Provider Name and Address Organization Details Recorded Time 03/15/2021 text/html Follow-up of ~20 11 onset of stumbling, ~2012 onset of falling on a small subset of her stumbles, but with 5 fractures having resulted from these falls. Also, continuous painless right medial leg numbness since right knee replacement surgery August 2017. After May 12, 2019 neurology follow-up encounter, 1 year and 10 months ago, she increased ropinirole 1 mg tablets up to 1 tablet early afternoon, 1 tablet late afternoon and 3 tablets 7 PM, with an extra tablet as needed. This did not work effectively for restless legs that continue to breakthrough, even earlier than early afternoon. By June she had settled on 2 tablets 3 times a day 9 AM/2:30 PM/8 PM which worked some of the time. Some of the time she needed an extra tablet at the 2 later times. To save medication she skipped the morning tablets. She thinks that the ferritin lab at [facility] was normal.Meanwhile, she was walking without any pain (context August 2018 fall causing left knee fracture) and without any gait aid when she fell and broke her left hip in August 2020. She recently graduated from her walker to a cane. Yesterday she tripped over her cane walking in her house and suffered significant bruising on her chest and other places. Her orthopedic doctor said she did not need any more physical therapy. Her gift packer has more recently sent her to physical therapy and they are working on both strengthening her left lower extremity and stretching to try to help significant residual pain in her left buttock and hip extending down her left lower extremity. She is upset that her left leg is now shorter, lopsided. She feels like just giving up. Interim history is reviewed from May 12, 2019 follow-up encounterSince July 13, 2018 neurology office visit, she has had a fall fracturing her left knee, followed by surgery. She had 3 weeks of rehabilitation. She still feels a little imbalance. Her main reason for coming, however, is restless leg syndrome, with restless legs, needing to move, better if she walks. Primary care wishes her to follow-up as they are uncomfortable with increasing ropinirole beyond her current dose, 2 mg every 7 PM. She has had restless legs for more than 2 years, anyway, she cannot be more specific. She started at 0.5 mg ropinirole every evening which helped. This has been increased, in stages, up to current dose for weeks ago, 2 mg every 7 PM, each time for breakthrough restless legs. The last increase did not help. She has had no side effects. Restless legs were initially only in the evening, preventing sleep. 4 ~1.5 years they have been breaking through afternoon time intermittently, especially with long car rides. She has taken ropinirole up to twice during the day before her 7 PM dose, but never more than 1 mg. She has no side effects to ropinirole..Alpa reynolds symptomatology is reviewed from March 16, 2018 initial neurology consultation: In ~2010, about 7 years ago, certainly not more than 10 years ago, she began to notice stumbling. In addition, since ~2010, even when she is not stumbling, she notices a mild feeling of imbalance, leaning in one direction or the other while she is walking. Stumbling and more mild imbalance have not changed since they emerged. However, since ~2011, a subset of the stumbles have been associated with falls. She estimates that she stumbles only 5 or 7 times per year. She has fallen approximately once a year, 6 or 7 falls in all. She has fractured a bone from the falls 5 times. When she stumbles, she feels the imbalance and feels herself going down. She is just not able to write herself so she hits the ground. Most recently, a stumbles/fall occurred as she was dancing with her young grandson, just a little shuffling, not much. However, she broke her left wrist. Another time she was in her basement and was just trying to push something a little bit to the side with her toe when she stumbled lost her balance, fell and suffered a fracture. She estimates that about 2 of the time she fell she was just walking, not doing something even mildly unusual such as pushing something with her foot or gently dancing. She had back pain leading to 2013 lower back surgery which helped the back pain and the leg pain go completely away. At some point after she noticed that her left-sided big toe didnt flex upward. She had return of back pain left greater than right and down the left leg leading to a little surgery April 2017 which did not help any of the symptoms. She is in ongoing management with [facility] of these symptoms. Felisha has had pain in her right knee since ~2014, about 3 years ago, well after she started having stumbling. She also developed pain in her left knee in ~2016, about a year ago. She had no pain with walking before 2014. She has no feeling of numbness in her feet when she walks. She has occasional very mild dizziness but it does not associate with her stumbling. Her right knee pain resolved completely after August 2017 right sided knee replacement surgery. She has not had any worsening in her stumbling since then. However, upon waking from that surgery, she noticed numbness, down the medial portion of her right lower extremity, starting proximally just above the knee in the distal medial thigh, going to just around the medial right ankle. This has not changed, either worsened or improved since that time. There is no pain spontaneously but when she shaves, it feels uncomfortable, almost like pain. Rob Her MD [address] [place] [address] [place], [phone], [facility] Neurology [facility] 03/15/2021 14:21:19 05/07/2023 text/html Follow-up of ~20 11 onset of stumbling, ~2011 onset of falling on a small subset of her stumbles, but with 5 fractures having resulted from these falls. Also, continuous painless right medial leg numbness since right knee replacement surgery August 2017. After March 15, 2021 neurology follow-up encounter, ~2 years and 2 months ago, she increased the ropinirole 1 mg tablets, from 6 tablets daily up to 8 tablets daily: 2 tablets 9 AM/3 tablets at 2:30 PM/3 tablets 8 PM, nightly as needed. She usually used the 90 tablet. With this, she was mostly okay, not having any problems sleeping from restless legs or problems during the day when on long car drives. She reports no side effects at this dosage and in particular when we go over it, note tiredness from the medication or sudden sleepiness; no nausea, confusion, compulsiveness or vivid dreams.The benefit from the ropinirole changed when she reduced her dose down to 1 tablet three times a day when primary care to go over the medication. She is confused about when this happened I am all confused because she has had such a horrible 2 years. This includes the Left hip fracture in August 2020 which I knew about, but which never healed well, leading to left hip replacement 2021; kidney stone surgery in September 2020 which I never knew about; thyroid problems leading to thyroid surgery February 2022.She switched primary care when her previous primary care retired. Primary care at some point, she thinks the new primary care, felt the dose I was prescribing was too high and since then she has been on 1 tablet three times a day of the ropinirole 1 mg. The computer upload from pharmacy suggests it is started September 26, 2022. This coincides with phone calls between the patient and our office resulting in my not refilling the prescription because the patient was canceling her appointment and I had not seen her for well over a year. However, she was taking more than 1 tablet three times a day at least until November 2022 because she had leftover from the supply I gave her at the higher dosage.In any case, since reducing down to 1 mg ropinirole 3 times a day, restless legs have been horrible, especially at night when she cannot sleep, making her exhausted during the day.She went to [facility] for consultation about her restless legs leading to an operation 2022 sealing a vein in her right leg. This was done on data that this might help her restless legs. It has not changed restless leg symptoms as far she can tell. >>>>>>>>>>March 151After May 12, 2019 neurology follow-up encounter, 1 year and 10 months ago, she increased ropinirole 1 mg tablets up to 1 tablet early afternoon, 1 tablet late afternoon and 3 tablets 7 PM, with an extra tablet as needed. This did not work effectively for restless legs that continue to breakthrough, even earlier than early afternoon. By June she had settled on 2 tablets 3 times a day 9 AM/2:30 PM/8 PM which worked some of the time. Some of the time she needed an extra tablet at the 2 later times. To save medication she skipped the morning tablets. She thinks that the ferritin lab at [facility] was normal.Meanwhile, she was walking without any pain (context August 2018 fall causing left knee fracture) and without any gait aid when she fell and broke her left hip in August 2020. She recently graduated from her walker to a cane. Yesterday she tripped over her cane walking in her house and suffered significant bruising on her chest and other places. Her orthopedic doctor said she did not need any more physical therapy. Her gift packer has more recently sent her to physical therapy and they are working on both strengthening her left lower extremity and stretching to try to help significant residual pain in her left buttock and hip extending down her left lower extremity. She is upset that her left leg is now shorter, lopsided. She feels like just giving up. >>>>>>>>>>May 12, 2019Since July 13, 2018 neurology office visit, she has had a fall fracturing her left knee, followed by surgery. She had 3 weeks of rehabilitation. She still feels a little imbalance. Her main reason for coming, however, is restless leg syndrome, with restless legs, needing to move, better if she walks. Primary care wishes her to follow-up as they are uncomfortable with increasing ropinirole beyond her current dose, 2 mg every 7 PM. She has had restless legs for more than 2 years, anyway, she cannot be more specific. She started at 0.5 mg ropinirole every evening which helped. This has been increased, in stages, up to current dose for weeks ago, 2 mg every 7 PM, each time for breakthrough restless legs. The last increase did not help. She has had no side effects. Restless legs were initially only in the evening, preventing sleep. 4 ~1.5 years they have been breaking through afternoon time intermittently, especially with long car rides. She has taken ropinirole up to twice during the day before her 7 PM dose, but never more than 1 mg. She has no side effects to ropinirole..>>>>>>>> >>March 16, 2018 initial neurology consultation :In ~2010, about 7 years ago, certainly not more than 10 years ago, she began to notice stumbling. In addition, since ~2010, even when she is not stumbling, she notices a mild feeling of imbalance, leaning in one direction or the other while she is walking. Stumbling and more mild imbalance have not changed since they emerged. However, since ~2011, a subset of the stumbles have been associated with falls. She estimates that she stumbles only 5 or 7 times per year. She has fallen approximately once a year, 6 or 7 falls in all. She has fractured a bone from the falls 5 times. When she stumbles, she feels the imbalance and feels herself going down. She is just not able to write herself so she hits the ground. Most recently, a stumbles/fall occurred as she was dancing with her young grandson, just a little shuffling, not much. However, she broke her left wrist. Another time she was in her basement and was just trying to push something a little bit to the side with her toe when she stumbled lost her balance, fell and suffered a fracture. She estimates that about 2 of the time she fell she was just walking, not doing something even mildly unusual such as pushing something with her foot or gently dancing. She had back pain leading to 2013 lower back surgery which helped the back pain and the leg pain go completely away. At some point after she noticed that her left-sided big toe didnt flex upward. She had return of back pain left greater than right and down the left leg leading to a little surgery April 2017 which did not help any of the symptoms. She is in ongoing management with [facility] of these symptoms. Felisha has had pain in her right knee since ~2014, about 3 years ago, well after she started having stumbling. She also developed pain in her left knee in ~2016, about a year ago. She had no pain with walking before 2014. She has no feeling of numbness in her feet when she walks. She has occasional very mild dizziness but it does not associate with her stumbling. Her right knee pain resolved completely after August 2017 right sided knee replacement surgery. She has not had any worsening in her stumbling since then. However, upon waking from that surgery, she noticed numbness, down the medial portion of her right lower extremity, starting proximally just above the knee in the distal medial thigh, going to just around the medial right ankle. This has not changed, either worsened or improved since that time. There is no pain spontaneously but when she shaves, it feels uncomfortable, almost like pain. Rob Her MD [address] [place] [address] [place], [phone], [facility] Neurology [facility] 05/07/2023 11:27:58 OBGyn Episode No OBEpisode recorded.
--- OUTSIDE RECORDS SUMMARY | 2024-08-31 12:50 | XMS_ITS | Encounter Summary ---
Author Organization [facility] Address [address] [place] [address] Care Team Providers Care Simulation Analyst Name Role Phone Arlyn Llanes PA-C Primary Care Provi bhavani Kalina Martins MD Unavailable [phone] Emanuel Mcclelland MD Unavailable [phone] Taye Andres MD Unavailable [phone] Jim Jordan Unavailable Encounter Details Date Type Department Care Team (Late st Contact Info) Description 08/21/2023 Scanned Document [facility] RHEUMATOLOGY SCAN Rheumatology, Scan Social History Tobacco Use Types Packs/Day Years Used Date Smoking Tobacco: Former Cigarettes 0.5 30 1 968 - 1998 Smokeless Tobacco: Never Alcohol Use Standard Drinks/Week Comments Never 0 (1 standard drink = 0.6 oz pur e alcohol) PHQ-2 Answer Date Recorded PHQ-2 Total Score 4 05/16/2023 [facility] [place] of Occupat ional Health - Occupational Stress [...] Description 10/01/2024 11:00 AM EDT Office Visit [facility] [address] [facility] [address] [place] [address] Arlyn Llanes PA-C [address] [place] [address] documented as of this encounter Visit Diagnoses Not on filedocumented in this encounter Care Teams Simulation Analyst Relationship Specialty Start Date End Date Arlyn Llanes PA-C PCP - General Adult Health - PA/APNP/DRESSAGE INSTRUCTOR/FISH ROD MAKER 03/17/23 Kalina Martins MD [address] [place] [phone] Endocrinology 09/17/23 Emanuel Mcclelland MD [address] [place] [address] Referring Provider Urology 09/17/23 09/17/23 Taye Andres MD [address] [place] [address] Rheumatology 09/17/23 Jim Jordan [address] [place] [address] Physical Medicine and Rehabilitation 09/17/23 Karen Greenwood Physician Gastroenterology 08/25/23 documented as of this encounter
--- OUTSIDE RECORDS SUMMARY | 2024-08-31 12:50 | XMS_ITS | Encounter Summary ---
Author Organization [facility] Address [address] [place] [address] Care Team Providers Care Behavioral Health Consultant Name Role Phone Arlyn Llanes PA-C Primary Care Provi bhavani Kalina Martins MD Unavailable [phone] Emanuel Mcclelland MD Unavailable [phone] Taye Andres MD Unavailable [phone] Jim Jordan Unavailable Encounter Details Date Type Department Care Team (Late st Contact Info) Description 05/07/2023 Telephone [facility] [address] [place] [address] Arlyn Llanes PA-C [address] [place] [address] Social History Tobacco Use Types Packs/Day Years Used Date Smoking Tobacco: Former Cigarettes Q uit: 1998 Smokeless Tobacco: Never Alcohol Use Standard Drinks/Week Comments Never 0 (1 standard drink = 0.6 oz pur e alcohol) [facility] of Occupat ional Health - Occupational Stress [...] PM EST documented as of this encounter Miscellaneous Notes * Telephone Encounter - Marlena Rg - 05/08/2023 10:29 AM EST Pt aware arlyn's schedule isnt open yet documented in this encounter Plan of Treatment Upcoming Encounters Date Type Department Care Team (Late Contact Info) Description 10/01/2024 11:00 AM EDT Office Visit [address] [phone] Arlyn Llanes PA-C [address] [place] [phone] documented as of this encounter Visit Diagnoses Not on filedocumented in this encounter Care Teams Behavioral Health Consultant Relationship Specialty Start Date End Date Arlyn Llanes PA-C PCP - General Adult Health - PA/APNP/TRUST ADVISOR/LIFE SCIENCES MANAGER 03/17/23 Kalina Martins MD [address] [place] [phone] Endocrinology 09/17/23 Emanuel Mcclelland MD [address] [place] [address] Referring Provider Urology 09/17/23 09/17/23 Taye Andres MD [address] [place] [address] Rheumatology 09/17/23 Jim Jordan [address] [place] [address] Physical Medicine and Rehabilitation 09/17/23 Karen Greenwood Physician Gastroenterology 08/25/23 documented as of this encounter
--- OUTSIDE RECORDS SUMMARY | 2024-08-31 12:50 | XMS_ITS | Encounter Summary ---
Author Organization [facility] Address [address] [place] [address] Care Team Providers Care Crab Steamer Name Role Phone Arlyn Llanes PA-C Primary Care Provi bhavani Kalina Martins MD Unavailable [phone] Emanuel Mcclelland MD Unavailable [phone] Taye Andres MD Unavailable [phone] Jim Jordan Unavailable Encounter Details Date Type Department Care Team (Late st Contact Info) Description 08/04/[address] [phone] Arlyn Llanes PA-C [address] [place], [place] [phone] Social History Tobacco Use Types Packs/Day Years Used Date Smoking Tobacco: Former Cigarettes 0.5 30 1 968 - 1998 Smokeless Tobacco: Never Alcohol Use Standard Drinks/Week Comments Never 0 (1 standard drink = 0.6 oz pur e alcohol) PHQ-2 Answer Date Recorded PHQ-2 Total Score 4 05/16/2023 [facility] [place] of Occupat ional Health - Occupational Stress [...] * Telephone Encounter - Marlena Rg - 08/04/2023 4:20 PM EDT Pt called again about below. She stated she has not heard from her end provider and she did labs two weeks ago. Advised pt MA would reach out to pt at a later day * Telephone Encounter - Marlena Rg - 08/04/2023 11:34 AM EDT Pt stated her endo provider Kalina martins is moving practices. She has not been able to get herlab results and is hoping arlyn can help. She stated [facility]. They might be available through care everywhere I can see an office note from june. [facility] The fax is [phone]. She stated she was seen for her calcium levels which has been all over since her parathyroid surgery documented in this encounter Plan of Treatment Upcoming Encounters Date Type Department Care Team (Late st Contact Info) Description 10/01/2024 11:00 AM EDT Office Visit [address] [place] [phone] Arlyn Llanes PA-C [address] [place] [address] documented as of this encounter Visit Diagnoses Not on filedocumented in this encounter Care Teams Crab Steamer Relationship Specialty Start Date End Date Arlyn Llanes PA-C PCP - General Adult Health - PA/CARLOS ENRIQUE/DIE FORGER/AUTO COLLISION REPAIR INSTRUCTOR 03/17/23 Kalina Martins MD [address] [place] [phone] Endocrinology 09/17/23 Emanuel Mcclelland MD [address] [place] [address] Referring Provider Urology 09/17/23 09/17/23 Taye Andres MD [address] [place] [address] Rheumatology 09/17/23 Jim Jordan [address] [place] [address] Physical Medicine and Rehabilitation 09/17/23 Karen Greenwood Physician Gastroenterology 08/25/23 documented as of this encounter
--- OUTSIDE RECORDS SUMMARY | 2024-08-31 12:50 | XMS_ITS | Clinical Summary ---
Author Organization [facility] Address [address] [facility] [place] [address] Phone Care Team Providers Care Paint Roller Winder Name Role Phone Arlyn Llanes Primary Care Provider [phone] Allergies Active Allergy Reactions Criticality Noted Date Comments Azithromycin Medium 12/06/2021 Zithromax Hives/Urticaria Shrimp 05/27/2024 Sumatriptan 03/27/2020 Imitrex Zolmitriptan 03/27/2020 Zomig funny feeling in chest : Medications LORazepam (ATIVAN) 0.5 mg tablet Take 1 tablet (0.5 mg total) by mouth 1 (one) time each day if needed. Active omeprazole (PriLOSEC) [address] capsule Take 1 Capsule by mouth daily. Active pravastatin (PRAVACHOL) 10 mg tablet Take 1 Tablet by mouth daily. Active FLUoxetine (PROzac) 40 mg capsule Take 1 Capsule by mouth daily. Active cholecalciferol (VITAMIN D-3) 50 mcg (2,000 unit) tablet Take 1 Cap by mouth daily Active vit A/vit C/vit E/zinc/copper (PRESERVISION AREDS ORAL) Take 1 tablet by mouth daily Active rOPINIRole (REQUIP) 1 mg tablet Take 3 tablets (3 mg total) by mouth 2 (two) times a day. Take 1 Tablet by mouth 3 times daily 3 Active traMADoL (ULTRAM) 50 mg tablet TAKE 1 TABLET BY MOUTH EVERY DAY NEEDED 2 Active metoprolol tartrate (LOPRESSOR) 25 mg tabletIndications :Palpitations,Roseann raeann hypertension Take 1 tablet (25 mg total) by mouth 2 (two) times a day. 180 each 3 5 05/27/19 26 Active Active Problems Problem Noted Date Diagnosed Date Palpitations 11/13/2022 Assessment & Plan (05/27/2024 8:39 PM EST): Orders: ECG 12 lead Cardiac holter monitor (<= 48 hours); Future metoprolol tartrate (LOPRESSOR) 25 mg tablet; Take 1 tablet (25 mg total) by mouth 2 (two) times a day. Prolonged QT interval 11/08/2022 Thyroid nodule 02/04/2022 Overview (05/11/2024): Resected 03/19 Macular degeneration 12/19/2021 Hip fracture ([facility] V24, [facility] V28) 10/26/19 21 Overview (05/11/2024): Left intertrochanteric fx 10/16. ORIF Malunion, THR 07/17 Hyperparathyroidism ([facility] V24) 10/05/2018 Overview (05/11/2024): 03/19 parathyroidectomy Lung nodules 08/19/2018 Overview (05/11/2024): Multiple tiny nodules, largest 4 mm; former smoker, repeated CT 09/14, due 1 year 01/16 improved; no further CT recommended Obesity (BMI 30.0-34.9) 01/25/2018 Assessment & Plan (05/27/2024 8:39 PM EST): Lumbar scoliosis 07/14/2017 Migraine without aura 07/14/2017 Fibromyalgia 12/09/2016 Overview (05/11/2024): Dr Painting Assessment & Plan (05/27/2024 8:39 PM EST): RLS (restless legs syndrome) 02/02/2016 Osteoporosis 11/02/2015 Overview (05/11/2024): 11/10 T score spine -1.1 hip -2.9 11/16 T score spine -0.6 hip -2.7 - on reclast Spinal stenosis, lumbar 10/11/2014 Overview (05/11/2024): hx 10/07/14 posterior decompression L4--L5, disc excision L4-5, fusion w [place] Legacy tiatnium rods/screws L45 with local bone graft Osteoarthritis 03/11/2014 Overview (05/11/2024): Rt knee, Rt hip hand, spine Nephrolithiasis 06/28/2008 Overview (05/11/2024): Bilateral nonobstructing stones, 5 mm left UVJ obstruction 11/15 with lithotripsy and stone removal Recurrent sinusitis 04/11/2008 Overview (05/11/2024): 2005 [facility] surgery HTN (hypertension) 01/01/2007 Assessment & Plan (05/27/2024 8:39 PM EST): Orders: metoprolol tartrate (LOPRESSOR) 25 mg tablet; Take 1 tablet (25 mg total) by mouth 2 (two) times a day. Positive PPD 06/04/2006 Overview (05/11/2024): INH, 2002 Depression 12/16/2005 Hyperlipidemia 04/25/2005 Immunizations Name Administration Dates Next Due Hepatitis B (Xuvcyuz-W-Epnop , Recombivax HB-Adult) 19yo and older 12/12/2011,07/12/2011,06/12/2011 Influenza Quadravalent, 0.5m l (Fluzone High-dose) 65yo and older 01/21/2022,01/22/2021,01/19/2020,01/01,01/23/2018,01/28/2017 Influenza Quadravalent, MDCK , 0.5ml, preservative free (Flucelvax) 6mo and older 01/01/2019,02/19/2016,01/10/2015,01/28,01/08/2011,02/02/2010,02/02/2008 Influenza, Unspecified 01/22/2021 Mumps 09/22/2009 Novel [id number] 02/14/2009 Pfizer SARS-CoV-2 COVID-19, mRNA, LNP-S, preservative free 01/30/2021,06/26/2020,06/05/2020 Pneumococcal conjugate 13 va lent (Prevnar 13, PCV13) 2mo and older 11/02/2015 Pneumococcal polysaccharide 23 valent (Pneumovax 23) 2yo and older 12/03/2017,01/09/2010,02/15/2002 Td, Unspecified 05/27/2018 Tdap Tetanus diptheria acell ular pertussis (Boostrix; Adacel) 7yo and older 02/14/2021,02/05/2008 Zoster Live 02/26/2012 Zoster recombinant (Shingrix ) 19yo and older 05/28/2022 Surgical History Surgery Date Site/Laterality Comments TONSILLECTOMY PROCEDURE: HISTORICAL TONSILLECTOMY OTHER SURGICAL HISTORY 11/27/2010 PROCEDURE: WI REPAIR RECTOCELE SEPARATE PROCEDURE; COMMENT: Greer sling, suspension w mesh COLONOSCOPY 09/01/2008 PROCEDURE: HISTORICAL COLONOSCOPY; COMMENT: neg, repeat 10 yrs BACK SURGERY 10/07/2014 PROCEDURE: HISTORICAL BACK SURGERY; COMMENT: lumbar decompression L4-L5, licha placement OTHER SURGICAL HISTORY 05/2019 PROCEDURE: MAMMOGRAM HAND SURGERY 03/2013 Right PROCEDURE: WI UNLISTED PROCEDURE HANDS/FINGERS; COMMENT: pinky finger, 2nd finger 07/2011 HYSTERECTOMY PROCEDURE: HISTORICAL HYSTERECTOMY; COMMENT: partial vag hyst, prolapse TOTAL KNEE ARTHROPLASTY 08/2017 Right PROCEDURE: HISTORICAL TOTAL KNEE REPLACE APPENDECTOMY 08/2021 PROCEDURE: WI APPENDECTOMY; COMMENT: along with resection of peritoneal flap Medical History Medical History Date Comments Depressive disorder, not els ewhere classified 12/16/2005 DX:Depressive disorder, not elsewhere classified Osteoporosis 11/02/2015 DX:Osteoporosis Fibromyalgia 12/09/2016 DX:Fibromyalgia Hyperlipidemia 04/25/2005 DX:Hyperlipidemi a Spinal stenosis, lumbar 10/11/2014 DX:Spina l stenosis, lumbar; COMMENT: hx 10/07/14 posterior decompression L4--L5, disc excision L4-5, fusion w Danek Legacy tiatnium rods/screws L45 with local bone graft RLS (restless legs syndrome) 02/02/2016 DX: RLS (restless legs syndrome) Recurrent sinusitis 04/11/2008 DX:Recurrent sinusitis; COMMENT: 2004 [facility] surgery Positive PPD 06/04/2006 DX:Positive PPD; COMMENT: INH, 2001 Nephrolithiasis 06/28/2008 DX:Nephrolithias is HTN (hypertension) 01/01/2007 DX:HTN (hyper tension); COMMENT: Diffuse pain 07/01/2017 DX:Diffuse pain Osteoarthritis 03/11/2014 DX:Osteoarthriti s; COMMENT: Rt knee, Rt hip hand, spine Migraine without aura 07/14/2017 DX:Migrain e without aura Lumbar scoliosis 07/14/2017 DX:Lumbar scoli osis Wrist fracture, bilateral DX:Wri st fracture, bilateral Lung nodules 08/19/2018 DX:Lung nodules; COMMENT: Multiple tiny nodules, largest 4 mm; former smoker, repeat CT 1 year Hyperparathyroidism ([facility] V24) 10/05/2018 DX:Hyperparathyroidism (HCC) Hip fracture ([facility] V24, [facility] V28) 10/25/2020 DX:Hip fracture (HCC); COMME NT: Left intertrochanteric fx 10/16. ORIF Macular degeneration 12/19/2021 DX:Macular degeneration Thyroid nodule 02/04/2022 DX:Thyroid nodul e GERD (gastroesophageal reflux disease) DX:GERD (gastroesophageal reflux disease) Family History Medical History Relation Name Comments Hypertension Father CAD, COPD, leuk emia Hypertension Mother CAD, depression , glioblaastoma Osteoporosis Sister 1 hypertension Hypertension Sister 2 second sister Relation Name Status Comments Father Mother Sister 1 Sister 2 Social History Tobacco Use Types Packs/Day Years Used Date Smoking Tobacco: Former Cigarettes Q uit: 04/28/2003 Smokeless Tobacco: Never Alcohol Use Standard Drinks/Week Comments Not Currently 0 (1 standard drink = 0.6 oz pur e alcohol) Comments Unknown Sex and Gender Information Value Date Recorded Sex Assigned at Not on file Legal Sex Female 4:53 PM EST Gender Identity Not on file Sexual Orientation Not on file Obstetrics History Last Filed Vital Signs Vital Sign Reading Time Taken Comments Blood Pressure 122/86 05/27/2024 9:54 AM EST Pulse 91 05/27/2024 9:54 AM EST Temperature - - Respiratory Rate - - Oxygen Saturation 96% 05/27/2024 9:54 AM EST Inhaled Oxygen Concentration - - Weight 106 kg (233 lb 8 oz) 05/27/2024 9:[address] Height 162.6 cm (5' 4 ) 05/27/2024 9:54 AM EST Body Mass Index 40.08 05/27/2024 9:54 AM EST Plan of Treatment Health Maintenance Due Date Last Done Comments Breast Cancer Screening 1950 Depression Screening 03/27/2022 Falls Risk Assessment 03/27/2022 Social Influencers of Health Screening 03/27/2022 COVID-19 Vaccine ( season) 2023 01/30/2021, 06/26/2020, 06/05/2020 Medicare Annual Wellness Visit 09/16/2024 09/17/2023 Hypertension/CHF/CAD Annual BMP Blood Test 04/12/2025 04/12/2024, 12/16/2023, 09/05/2023, Additional history exists Cholesterol Screening (Lipid Panel) 05/16/2026 05/16/2021 Colorectal Cancer Screening: Colonoscopy 11/10/2028 11/10/2018 DTaP,Tdap,and Td Vaccines (4 - Td or Tdap) 02/14/2031 02/14/2021, 05/27/2018, 02/05/2008 Osteoporosis Screening (Bone Density Screening) 11/09/2031 11/08/2021, 02/06/2018 Hepatitis B Vaccines Completed 12/12/2011, 07/12/2011, 06/12/2011 Hepatitis C Screening Completed 09/30/2012 Pneumococcal Vaccine: 50+ Years Completed 12/03/2017, 11/02/2015, 01/09/2010, Additional history exists Zoster Vaccines Completed 11/25/2022, 0507/2022, 05/28/2022, Additional history exists Influenza Vaccine Completed 01/04/2024, , 01/21/2022, Additional history exists RSV Immunization Adult Patients Completed 01/04/2024 HIB Vaccines Aged Out No longer eligi ble based on patient's age to complete this topic HPV Vaccines Aged Out No longer eligi ble based on patient's age to complete this topic Hepatitis A Vaccines Aged Out No long er eligible based on patient's age to complete this topic IPV Vaccines Aged Out No longer eligi ble based on patient's age to complete this topic MMR Vaccines Aged Out No longer eligi ble based on patient's age to complete this topic Meningococcal ACWY Vaccine Aged Out N o longer eligible based on patient's age to complete this topic Meningococcal B Vaccine Aged Out No l onger eligible based on patient's age to complete this topic RSV Immunization Patients Under 20 months Aged Out No longer eligible based on patient's age to complete this topic Varicella Vaccines Aged Out No longer eligible based on patient's age to complete this topic Procedures Procedure Name Priority Date/Time Associated Diagnosis Comments ANNUAL BMP BLOOD TEST Routine 03/29/2022 [facility] Routine 11/08/2021 6:09 PM EDT Encounter for screening for osteoporosis LIPID PANEL Routine 05/16/2021 COLONOSCOPY Routine 11/10/2018 HEPATITIS C SCREENING Routine 09/30/2012 from Last 3 Months or Most Recently Relevant to Health Maintenance Results * Annual BMP Blood Test (03/29/2022) Annual BMP Blood Test abstracted us Historical Provider MD HEALTH MAINTENANCE Final Result * [facility] (11/08/2021 6:09 PM EDT) Anatomical Region Laterality Modality Mammography 11/07/2021 3:06 PM EDT Narrative 11/08/2021 6:09 PM EDT [facility] Diagnostic Imaging Department [address] [place] [address] Patient: ??ZURI SHARMA ?/Age/Sex: 1950 - 71 - F Unit#: ??[id number] ? Location/Status: ??SPDIMAM/REG CLI ? Mnemonic/Ordering Site: ??MAMDEXAAX/SPMAM Ordering Physician: ??TAYE PAINTING MD [facility] Dexa Axial Skeleton - 11/07/21 - 153 History: Low estrogen state due to menopause. Left hip replacement. Height loss. History of adult fracture (multiple). Comparison: No comparison studies at this institution. Findings: Bone densitometry is performed utilizing dual energy x-ray absorptiometry (DXA) in the [employer] unit. The lumbar spine and right proximal femur are evaluated in the AP projection. The FRAX questionaire was completed. The results indicate osteoporosis, with a right femoral neck T-score of -2.8. The detailed DEXA report will be mailed to the referring physician's office. DualFemur FRAX: 10-year Probability of Fracture: Major Osteoporotic 24.6 percent ??Hip 7.2 percent. IMPRESSION: Osteoporosis. [id number] Dictating Physician: ??CHRISTAL SHARP MD Electronically Signed by: ??CHRISTAL SHARP MD Dic Date/Time: ??11/08/211807 Sign date/Time: ??11/08/211808 Procedure Note Christal Sharp MD - 04/17/2022 [facility] Diagnostic Imaging Department [address] [place] [address] Patient: ZURI SHARMA /Age/Sex: 1950 - 71 - F Unit#: [id number] Location/Status: SPDIMAM/REG CLI Mnemonic/Ordering Site: MAMDEXAAX/SPMAM Ordering Physician: TAYE PAINTING MD [facility] Dexa Axial Skeleton - 11/07/21 - 1533 History: Low estrogen state due to menopause. Left hip replacement. Heightloss. History of adult fracture (multiple). Comparison: No comparison studies at this institution. Findings: Bone densitometry is performed utilizing dual energy x-ray absorptiometry(DXA) in the [employer] unit. The lumbar spine and right proximal femur are evaluated in the AP projection. The FRAX questionaire was completed. The results indicate osteoporosis, with a right femoral neck T-score of-2.8. The detailed DEXA report will be mailed to the referring physician'soffice. DualFemur FRAX: 10-year Probability of Fracture: Major Osteoporotic 24.6 percent Hip 7.2 percent. IMPRESSION: Osteoporosis. [id number] Dictating Physician: CHRISTAL SHARP MD Electronically Signed by: CHRISTAL SHARP MD Dic Date/Time: 11/08/211807 Sign date/Time: 11/08/211808 us Taye Painting MD IMG BI PROCEDURES Final Res ult * (ABNORMAL) Lipid panel (05/16/2021) LDL/HDL Ratio 3 0 - 4 Triglycerides 229(A) 0 - 150 mg/dL Cholesterol 202(A) 0 - 200 mg/dL HDL 63 >=40 mg/dL LDL Cholesterol 94 0 - 100 mg/dL Blood Venous blood specimen / Unknown Historical Provider LAB BLOOD ORDERABLES Alisson l Result * Colonoscopy (11/10/2018) Pathologist [facility] Colonoscopy negative, abstracted Anatomical Region Laterality Modality Other [facility] Provider HEALTH MAINTENANCE Final Result * Hepatitis C Screening (09/30/2012) [facility] Hepatitis C Screening abstracted Historical Provider HEALTH MAINTENANCE Final Result from Last 3 Months or Most Recently Relevant to Health Maintenance Insurance MEDICARE [place] Care Teams Paint Roller Winder Relationship Specialty Start Date End Date Arlyn Llanes PA [address] [place] [address] PCP - General 11/13/22
--- OUTSIDE RECORDS SUMMARY | 2024-08-31 12:50 | XMS_ITS | Encounter Summary ---
Author Organization [facility] Address [address] [place] [id number] Care Team Providers Care Mail Weigher Name Role Phone Arlyn Llanes PA-C Primary Care Provi bhavani Kalina Martins MD Unavailable [phone] Taye Andres MD Unavailable [phone] Jim Jordan Unavailable Encounter Details Date Type Department Care Team (Late st Contact Info) Description 12/15/[address] [phone] Arlyn Llanes PA-C [address] [place] [phone] Social History Tobacco Use Types Packs/Day Years Used Date Smoking Tobacco: Former Cigarettes 0.5 30 1 968 - 1998 Smokeless Tobacco: Never Alcohol Use Standard Drinks/Week Comments Never 0 (1 standard drink = 0.6 oz pur e alcohol) PHQ-2 Answer Date Recorded PHQ-2 Total Score 0 09/16/2023 [facility] [place] [facility] - Occupational Stress [...] Notes * Telephone Encounter - Marlena Rg MA - 12/15/2023 10:48 AM EDT Pt is asking for a therapist recommendation. She is aware arlyn is out this week documented in this encounter Plan of Treatment Upcoming Encounters Date Type Department Care Team (Late st Contact Info) Description 10/01/2024 11:00 AM EDT Office Visit [address] [phone] Arlyn Llanes PA-C [address] [place] [address] documented as of this encounter Visit Diagnoses Not on filedocumented in this encounter Care Teams Mail Weigher Relationship Specialty Start Date End Date Arlyn Llanes PA-C PCP - General Adult Health - PA/APNP/VISUAL EDUCATION DIRECTOR/MANAGER PART 03/17/23 Kalina Martins MD [address] [place] [phone] Endocrinology 09/17/23 Taye Andres MD [address] [place] [address] Rheumatology 09/17/23 Jim Jordan [address] [place] [address] Physical Medicine and Rehabilitation 09/17/23 Karen Greenwood Physician Gastroenterology 08/25/23 documented as of this encounter
--- OUTSIDE RECORDS SUMMARY | 2024-08-31 12:50 | XMS_ITS | Encounter Summary ---
Author Organization [facility] Address [address] [place] [address] Care Team Providers Care Occupational Therapy Supervisor Name Role Phone Arlyn Llanes PA-C Primary Care Provi bhavani Kalina Martins MD Unavailable Emanuel Mcclelland MD Unavailable [phone] Taye Andres MD Unavailable [phone] Jim Jordan Unavailable Reason for Visit * Reason Comments Advice Only Encounter Details Date Type Department Care Team (Late st Contact Info) Description 04/24/[address] [phone] Hollie Burgos MD [address] [place] [address] Advice Only Social History Tobacco Use Types Packs/Day Years Used Date Smoking Tobacco: Never Assessed Comments Unknown Sex and Gender Information Value [...] Description 10/01/2024 11:00 AM EDT Office Visit [address] [place] [phone] Arlyn Llanes PA-C [address] [place] [address] documented as of this encounter Visit Diagnoses Not on filedocumented in this encounter Care Teams Occupational Therapy Supervisor Relationship Specialty Start Date End Date Arlyn Llanes PA-C PCP - General Adult Health - PA/APNP/KITMAN/PULVERIZER FEEDER 03/17/23 Kalina Martins MD [address] [place] [phone] Endocrinology 09/17/23 Emanuel Mcclelland MD [address] [place] [address] Referring Provider Urology 09/17/23 09/17/23 Taye Andres MD [address] [place] [phone] Rheumatology 09/17/23 Jim Jordan [address] [place] [address] Physical Medicine and Rehabilitation 09/17/23 Karen Greenwood Physician Gastroenterology 08/25/23 documented as of this encounter
--- OUTSIDE RECORDS SUMMARY | 2024-08-31 12:50 | XMS_ITS | Encounter Summary ---
Author Organization [facility] Address [address] [place] [address] Care Team Providers Care Test Lead Name Role Phone Arlyn Llanes PA-C Primary Care Provi bhavani Kalina Martins MD Unavailable [phone] Emanuel Mcclelland MD Unavailable [phone] Taye Andres MD Unavailable Jim Jordan Unavailable Encounter Details Date Type Department Care Team (Late st Contact Info) Description 05/09/2023 Scanned Document [facility] NEUROLOGY SCAN Neurology, Scan Social History Tobacco Use Types Packs/Day Years Used Date Smoking Tobacco: Former Cigarettes Q uit: 1998 Smokeless Tobacco: Never Alcohol Use Standard Drinks/Week Comments Never 0 (1 standard drink = 0.6 oz pur e alcohol) [facility] [place] of Occupat ional Health - Occupational Stress [...] 11:00 AM EDT Office Visit [facility] [address] [facility] [address] [place] [phone] Arlyn Llanes PA-C [address] [place] [address] documented as of this encounter Visit Diagnoses Not on filedocumented in this encounter Care Teams Test Lead Relationship Specialty Start Date End Date Arlyn Llanes PA-C PCP - General Adult Health - PA/CARLOS ENRIQUE/LOCK TENDER CHIEF OPERATOR/TERMINAL GAUGER 03/17/23 Kalina Martins MD [address] [place] [phone] Endocrinology 09/17/23 Emanuel Mcclelland MD [address] [place] [address] Referring Provider Urology 09/17/23 09/17/23 Taye Andres MD [address] [place] [address] Rheumatology 09/17/23 Jim Jordan [address] [place] [address] Physical Medicine and Rehabilitation 09/17/23 Karen Greenwood Physician Gastroenterology 08/25/23 documented as of this encounter
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
[2024-08-31 13:39] VITALS: BP 128/62; PULSE 81; RESP 18; TEMP 36.8; O2SAT 96
[2024-08-31 14:08] VITALS: BP 128/62; PULSE 81; O2SAT 96
[2024-08-31] MEDS: oxyCODONE HCl Immed Release 5 MG TABLET PO ×2 (14:11→21:27)
--- NOTE | 2024-08-31 15:22 | MHC.CM.ED ---
Received case management consult from Malissa YOUSSEF. Patient came to the ER due to a fall. Found to have a left knee sprain. Physical therapy eval completed. Acute rehab is recommended. Met with patient in regards to discharge planning. Patient lives with her son and grandson, ambulates with a cane at baseline and had no services prior to coming to the ER. PCP verified as Arlyn Alejandra in [place]. Copy of HCP obtained from [facility]. [facility] is patient's 1st choice. Referral made to all 3 acute rehab facilities. Continue to monitor for d/c needs.
[2024-08-31 15:31] LABS: Influenza A PCR NEGATIVE (Negative); Influenza B PCR NEGATIVE (Negative); Resp Syncy Virus RNA Qual PCR NEGATIVE (Negative); SARS COV2 PCR INHOUSE NEGATIVE (Negative)
[2024-08-31] MEDS: rOPINIRole HCL 1 MG TABLET 3 MG PO ×2 (15:47→22:24)
--- NOTE | 2024-08-31 19:10 | PHA.MEDREC ---
Pharmacy Consult ? Medication Reconciliation Pharmacy has completed the medication reconciliation. MED REC REVIEWED BY [facility]. FOUND DISCREPANCIES ON CLAIMS AND WHAT WAS ENTERED INTO HOME MEDS BY NURSING. AFTER SPEAKING TO PATIENT SHE WAS EASILY ABLE TO CONFIRM HER DOSING. HER HOME MEDS WERE CORRECTED TO ROPINIROLE 1 MG IN THE MORNING 3 MG AT NOON, 3 MG AT BEDTIME. LORAZEPAM 0.5 MG AT BED PRN, AND PRESERVISION EYE CAPS WERE ALSO ADDED TO HOME MED LIST THEY WERE MISSING FROM ORIGINAL MED REC. PROVIDER WAS NOTIFIED AND ADJUSTMENTS TO HOME MEDS WERE MADE.
[2024-08-31] MEDS: Calcium + Vitamin D 250 MG TABLET PO (21:27)
[2024-09-01] MEDS: LORazepam 0.5 MG TABLET PO (02:51)
[2024-09-01] MEDS: oxyCODONE HCl Immed Release 5 MG TABLET PO ×2 (04:49→10:14)
[2024-09-01 06:00] VITALS: BP 117/63; PULSE 87; RESP 16; TEMP 36.5; O2SAT 96
[2024-09-01 07:42] VITALS: BP 125/67; PULSE 81; RESP 18; TEMP 36.9; O2SAT 95
[2024-09-01 08:39] VITALS: BP 125/67; PULSE 81
[2024-09-01] MEDS: Metoprolol Tartrate 25 MG TABLET PO (08:39)
[2024-09-01] MEDS: rOPINIRole HCL 1 MG TABLET PO (08:40)
[2024-09-01] MEDS: Multivitamin TABLET 1 TAB PO (08:40)
[2024-09-01] MEDS: Calcium + Vitamin D 250 MG TABLET PO (08:40)
[2024-09-01] MEDS: FLUoxetine HCl 20 MG CAPSULE 40 MG PO (08:40)
[2024-09-01] MEDS: Pravastatin Sodium 10 MG TABLET PO (08:44)
[2024-09-01] MEDS: rOPINIRole HCL 1 MG TABLET 3 MG PO (11:44)
--- NOTE | 2024-09-01 13:20 | MHC.CM.ED ---
Patient remains in ER overflow. [facility] is not able to offer a bed. Met with patient to discharge planning. Private STR vs home with [facility] discussed. Patient would prefer to return home with [facility]. Patient's son will transport for home after 2pm. Patient has not been active with any [facility] in the past. Patient agreeable to referral being broadcasted. [facility] able to accept patient. Patient agreeable. Patient, Lisbet RANADLL and Malissa YOUSSEF aware. Continue to monitor for d/c needs.
[2024-09-01 14:00] VITALS: BP 117/60; PULSE 79; RESP 19; TEMP 37.1; O2SAT 96
[2024-09-01] MEDS: Naloxone HCl Nasal TAKE HOME 4 MG SPRAY 8 MG NOSTRILALT (14:11)
[2024-09-01 14:48] VITALS: BP 117/60; PULSE 79; RESP 19; TEMP 37.1; O2SAT 96
== END 2024-09-01 14:55 | disposition home or self-care (01) ==
PROVIDERS: Physician Assistant Medical; Emergency Provider Emergency Medicine Emergency Medical Services; PCP Physician Assistant Medical
DX: S83.92XA Sprain of unspecified site of left knee, initial encounter (principal); W22.8XXA Striking against or struck by other objects, initial encounter; M25.562 Pain in left knee; Y93.89 Activity, other specified; Y92.039 Unspecified place in apartment as the place of occurrence of the external cause; Y99.9 Unspecified external cause status; Z03.818 Encounter for observation for suspected exposure to other biological agents ruled out
CPT/HCPCS: 0241U; 73564; 73700; 96372; 97161; 99285; J1885

== ENCOUNTER → 2024-08-31 11:06 | Outpatient (BNV) | payer MEDICARE, SELFPAY | PROVIDERS: Emergency Provider Emergency Medicine Emergency Medical Services; Visit Provider Radiology Diagnostic Radiology | DX: M17.12 Unilateral primary osteoarthritis, left knee (principal); M25.462 Effusion, left knee | CPT/HCPCS: 73564 ==